=== PATIENT | female | born 1955 | race Caucasian/White ===

== ENCOUNTER → 2018-03-10 07:27 | Outpatient (CLI) | payer SELFPAY ==
--- NOTE | 2018-03-10 10:09 | NEURO_ITS ---
NCS and/or EMG Patient Report Ordering Doctor: Jaison Pina DATE OF SERVICE: 03/10/18 This is a left upper extremity nerve conduction study performed on this 62-year- old female who although she is right-handed she has symptoms on the left side including numbness of the first 3 digits and one half of the fourth digit on her left side. There is no neck pain or injury. She is healthy otherwise. Right upper extremity sensory and motor nerve conduction studies performed. The median sensory responses are not obtainable. The median motor responses are severely prolonged with severe reduction of amplitude. The ulnar motor and sensory and radial sensory responses are normal. The median F-wave latency is severely prolonged compared to the ulnar F wave latency. Impression: Abnormal nerve conduction study of the left upper extremity consistent with severe carpal tunnel syndrome at the left wrist.
== END ==
PROVIDERS: Visit Provider Orthopaedic Surgery
DX: M25.532 Pain in left wrist (principal)
CPT/HCPCS: 95909

== ENCOUNTER 2018-05-29 17:37 | Inpatient (IN) | payer OTHER, SELFPAY ==
[2018-05-29] VITALS (21 sets, daily range): BP systolic 81–129; BP diastolic 44–97; PULSE 92–136; RESP 15–22; TEMP 36.7–36.9; O2SAT 96–98; BMI 34.2
--- NOTE | 2018-05-29 18:01 | HP.PCM_ITS ---
History of Present Illness Date of Admission: 05/29/18 Chief Complaint: afib with RVR, epistaxis The patient is a 63 year old F with a past medical history of hypertension, rheumatoid arthritis and hypertrophic cardiomyopathy. She was admitted as a transfer from [facility] in hospital with A. fib and RVR as well as NSTEMI. Patient says symptoms started last Thursday when she started having left nostril nosebleed. She went to her primary care doctor's office and she was sent to the ENT and nostril was packed. Subsequently started experiencing palpitations on Thursday. Palpitations persisted with a stiff shortness of breath and lethargic. Therefore today she went to see her PCP and she was referred to the emergency room. On arrival in the emergency room. Troponin was also done which was elevated at 2.25. She was started on heparin drip and started on Cardizem drip as well. Patient requested transfer to [facility]. On arrival she had no complaints though still said she was experiencing a tachycardia. She has started experiencing left nostril bleeding again and says she felt a depend on the back of her throat. She admitted to having the left nasal packing still in place. She denied any fever or chills, any cough or chest pain but admitted to palpitations and shortness of breath with exertion, and denied any abdominal pain, diarrhea vomiting. Review of systems otherwise negative. She is being admitted to be managed for NSTEMI and Afib with RVR.[] Past Medical History Allergies No Known Allergies Allergy (Verified 06/20/16 14:49) Home Medications: Ambulatory Orders Medication Instructions Recorded ALPRAZolam [Xanax] 0.5 mg PO BID PRN PRN 02/11/16 Brimonidine Tartrate 0.2% 1 drop EACH EYE BID 02/11/16 [Brimonidine 0.2% 5Ml Bottle] Folic Acid 1 mg PO DAILY@0800 02/11/16 Hydrochlorothiazide [Hctz] 12.5 mg PO DAILY 02/11/16 Metoprolol Tartrate [Lopressor 50 mg PO DAILY 02/11/16 (beta reji)] Timolol 0.5% [Timoptic] 1 drop EACH EYE BID 02/11/16 Acetaminophen [Tylenol] 1,000 mg PO Q8 #90 tablet 12/10/16 Aspirin 325 mg PO BIDCM #60 tablet 12/10/16 Oxycodone CR [Oxycontin] 10 mg PO BID #30 tablet 12/10/16 Oxycodone [Oxyir] 5 - 10 mg PO Q6H PRN PRN #30 tablet 12/10/16 Surgical History: total knee arthroplasty 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 Denies: Chills, Fever, Weight Change Eyes: Denies: Blurred vision HEENT: Denies: Head Aches, Sinus Congestion, Sinus Drainage Cardiovascular: Reports: Light Headedness, Palpitations. Denies: Chest Pain, Chest Pressure, Chest Tightness, Edema, Heaviness, Orthopnea, Paroxysmal Noc. Dyspnea, Syncope Respiratory: Reports: Shortness of Breath, Shortness of breath upon exertion. Denies: Cough, Shortness of breath at rest, Sputum production, Wheezing Gastrointestinal: Denies: Abdominal Pain, Nausea, Vomiting Genitourinary: Denies: Dysuria Musculoskeletal: Denies: Joint Pain, Joint Tenderness Skin: Denies: Rash, Wounds Neurological: Denies: Numbness, Tingling, Focal weakness Psychiatric: Denies: Anxiety, Depression, Homicidal Ideations, Suicidal Ideations Hematologic/ Lymphatic: Denies: Easy Bruising, Easy Bleeding VTE Information - Inpt Only VTE Present on Admission: No - Physical Exam General: Alert, Oriented x3, Cooperative, No apparent distress HEENT: Atraumatic, PERRLA, EOMI, Normocephalic Oral: Moist Mucosa Neck: Supple, No JVD, Negative Carotid Bruits Lungs: Clear to auscultation, Normal air movement, No rhonchi, No wheeze, No rales Cardiovascular: Normal S1, Normal S2, Irregular Rate, Murmur - grade 3-4 systolic murmur loudest at 2nd left intercostal space and tricuspid valve area, Tachycardic Abdomen: Bowel Sounds Present, Soft, Non Tender, Non-Distended, No Hepato- splenomegaly Extremities: No clubbing, No cyanosis, No edema, Capillary Refill Less than 3 Seconds Skin: No rashes, No breakdown Musculoskeletal: No Tenderness to Palpation of Joints or Extremities Lymphatic: No Cervical, Supraclavicular, or Inguinal Adenopathy Neurological: Cranial nerves II-XII grossly intact Psych/Mental Status: Normal Affect, Appropriate, Alert and oriented to time, place, person, mood and affect Vital Signs Temp Pulse Resp BP Pulse Ox 98.4 F 127 H 17 106/82 H 98 05/29/18 17:45 05/29/18 17:45 05/29/18 17:45 05/29/18 17:45 05/29/18 17:45 Oxygen Delivery Method Room Air Weight: 187 lb Body Mass Index (BMI) 34.2 Intake and Output for Last 24 Hours 05/27/18 05/28/18 05/29/18 23:59 23:59 23:59 Intake Total 0 / 0 Balance 0 / 0 Assessment/Plan 63-year-old woman admitted with a complaint of palpitations and nosebleed. 1. New onset Afib with RVR * HR on admission in 130s-140s * on cardizem 10mcg/hr from [facility] * admit to PCU with telemetry * continue cardizem and titrate to HR <110 * on heparin drip; will continue * 2D echocardiogram * initial troponin was 2.43; will cycle * 2. NSTEMI: * initial troponin done at [place] was 2.43; will check cardiac enzymes here. * heparin drip. SL nitroglycerin PRN. * EKG showed no acute ST changes and showed Afib with RVR * cardiology consult * received statin and plavix at [place] 3. Acute diastolic CHF [id number] * BNP at [place] was 1600; has no known CHF exacerbation * last echo(2016):normal LV size with severe assymetric septal hypertrophy;' EF of 50% with mid cavitary dynamic gradient of 64mmHg. Left atrium moderately enlarged; * will repeat BNP here * give IV lasix 40mg bid * cardiology consulted * 4. Acute epistaxis: * started 3 days ago and had left nostril packed by ENT doctor in [place]. * Started bleeding again today after she was started on heparin drip; nasal packing is still in place. * Consult ENT. 5. Hypertension: * on metoprolol and HCTZ. * hadnt taken her meds for about 3 days prior to admission she states her blood pressure had been running low at home. * Currently on Cardizem drip. Systolic blood pressure running the 90s and 100s. * Will hold hydrochlorothiazide for now as well as metoprolol. * 6. Rheumatoid arthritis: on oxycodone and acetaminophen prn 7. History of hypertrophic cardiomyopathy: echo (2017) as documented above. cardiology consulted DVT prophylaxis: on heparin drip Code status; patient and counseled extensively about different types of CODE STATUS including full code, DNR CCA and DNR CCA. Patient elects to be full code. Total [id number] time 17 minutes. Code Visit Inpatient E&M: 59888 Init Hosp L3 Procedures: 12690 Advncd Care Plan 30 Min
[2018-05-29 18:53] LABS: Anion Gap 12 (5-15); BUN 33 mg/dL (7-18); BUN/Creat Ratio 43.1 RATIO (10-20); Calcium,Total 8.6 mg/dL (8.5-10.1); Chloride 104 mmol/L (98-107); Cholesterol 158 mg/dL (200); Creatinine, Serum 0.77 mg/dL (0.55-1.02); EST Glomerular Filtration Rate 81 mL/min (>60); Est Glom Filt Rate - Afr Amer 98 mL/min (>60); Estimated Creatinine Clearance 59.15 ml/min; Glucose 122 mg/dL (74-106); High Density Lipoprotein 32 mg/dL; Potassium 3.8 mmol/L (3.5-5.1); Sodium Level 139 mmol/L (136-145); Triglycerides 115 mg/dL; Very Low Density Lipoprotein 23 mg/dL (5-40)
[2018-05-29 19:25] LABS: Absolute Lymphocyte Count 2.83 X10^3/ul (0.83-4.51); Absolute Neutrophil Count 9.6 X10^3/uL (2.0-7.7); Basophil# 0.04 X10^3/uL; Basophil% 0.3 % (0-1); Differential Indicated SCAN CRITERIA MET; Eosinophil# 0.03 X10^3/uL; Eosinophils% 0.2 % (0-5); Hemoglobin 12.1 g/dl (12.0-15.0); Lymphocyte # 2.83 X10^3/ul (4.0); Lymphocyte % 20.2 % (19-41); Mean Corp Hgb Conc 33.6 g/gl (32-36); Mean Corpuscular Hgb 31.6 pg (27.0-32.0); Mean Platelet Vol. 9.3 fl (6.2-12.0); Monocyte# 1.51 X10^3/uL; Monocyte% 10.8 % (0-10); Neutrophil # 9.57 X10^3/uL (2.7-7.7); Neutrophil % 68.4 % (47-70); POSITIVE COUNT NO; POSITIVE DIFFERENTIAL YES; POSITIVE MORPHOLOGY NO; Platelet Count 270 K/mm3 (150-450); RBC Distribution Width CV 13.8 % (11.6-14.6); RBC Distribution Width SD 47.1 fl (35.1-43.9); Red Blood Count 3.83 M/mm3 (4.2-5.4)
[2018-05-29 19:36] LABS: International Normalized Ratio 1.3
[2018-05-29] MEDS: Clopidogrel Bisulfate 300 MG Tablet PO (19:38)
[2018-05-29] MEDS: dilTIAZem 25 MG/5 ML Vial 20 MG IV BOLUS (19:39)
[2018-05-29] MEDS: 0.9% Saline Lock 10 ML Syringe IV (19:40)
[2018-05-29 20:05] LABS: Partial Thromboplast Time 184.4 Seconds (24.1-36.2)
[2018-05-29 20:06] LABS: Differential Comment SCANNED
[2018-05-29] MEDS: Digoxin 250 MCG/ML Ampul 500 MCG IV (20:46)
--- NOTE | 2018-05-29 21:10 | PCM.CONS.C ---
Reason for Consult Date of Consultation: 05/29/18 Reason for Consultation: Irregular heartbeat History of Present Illness: The patient is a 63 year old F with a past medical history of hypertension, rheumatoid arthritis and hypertrophic cardiomyopathy. She was admitted as a transfer from [facility] with A. fib and RVR as well as NSTEMI. Patient says symptoms started last Thursday when she started having left nostril nosebleed. She went to her primary care doctor's office and she was sent to the ENT and nostril was packed. Subsequently started experiencing palpitations on Thursday. Palpitations persisted with some associated shortness of breath. Therefore today she went to see her PCP and she was referred to the emergency room. On arrival in the emergency room. Troponin was also done which was elevated at 2.25. She was started on heparin drip and started on Cardizem drip as well. Patient requested transfer to [facility]. On arrival she had no complaints though still said she was experiencing a tachycardia. She has started experiencing left nostril bleeding again and says she felt a depend on the back of her throat. She admitted to having the left nasal packing still in place. She denied any fever or chills, any cough or chest pain but admitted to palpitations and shortness of breath with exertion, and denied any abdominal pain, diarrhea vomiting. On the telemetry unit she was noted to be tachycardic and also got mildly hypotensive and cardiology was called for further evaluation and management. You do remember that she had gone through previous 2 knee surgeries. She had a stress test performed last year which did not demonstrate any evidence of ischemia and an echocardiogram performed which demonstrated severe asymmetric septal hypertrophy with an estimated ejection fraction of 50% on the echocardiogram performed here in [place]. There was systolic anterior motion of the mitral valve noted. Echocardiogram performed in [place] demonstrated a similar finding. Previous cardiac catheterization in 2004 demonstrated no obstructive coronary disease noted. 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 Denies: Chest Discomfort, Shortness of Breath, Orthopnea, PND, Peripheral Edema, Lightheadedness, Dizziness, Near Syncope, Syncope Respiratory: Denies: Cough, Sputum Production, Hemoptysis Gastrointestinal: Denies: Indigestion, Hematemesis, Hematochezia, Melena Genitourinary: Denies: Dysuria, Hematuria Muscoloskeletal: Denies: Myalgias Skin: Denies: Rash Neurological: Denies: Dizziness Psychiatric: Denies: Anxiety Endocrine: Denies: Unexplained Weight Loss Hematologic/ Lymphatic: Denies: Anemia Subjectve: Pleasant lady in no apparent distress Objective: Vital Signs Temp Pulse Resp BP Pulse Ox 98.4 F 115 H 21 H 92/65 97 05/29/18 17:45 05/29/18 20:46 05/29/18 19:15 05/29/18 19:15 05/29/18 19:15 Oxygen Delivery Method Room Air Weight: 187 lb Body Mass Index (BMI) 34.2 Intake and Output for Last 24 Hours 05/27/18 05/28/18 05/29/18 23:59 23:59 23:59 Intake Total 0 / 0 Balance 0 / 0 General: Awake, Alert, Oriented x 3 HEENT: PERRL, EOMI, Sclera Non Icteric Neck: Supple, Good ROM, No Lymph Node Enlargement Lungs: Diminished Johnny Bases Cardiovascular: Irregular Rhythm, Normal S1, Normal S2, No Rubs, No Gallops Vascular: No Carotid Bruits, Normal Femoral Pulses, Normal Radial Pulses, Normal Dorsalis Pedal Pulse, Normal Posterior Tibial Pulses Abdomen: Bowel Sounds Present, Soft, Non Tender, No HSM, No Organomegaly Extremities: No Cyanosis, No Clubbing, No edema Skin: No Rashes Lymphatic: No Lymph Node Enlargement Neurological: No Focal Motor or Sensory Deficit Psych/Mental Status: Appropriate 05/29/18 18:22: Troponin I 5.450 H* 05/29/18 18:22: Sodium 139, Potassium 3.8, Chloride 104, Carbon Dioxide 23.0, Anion Gap 12, BUN 33 H, Creatinine 0.77, Est GFR (MDRD) Af Amer 98, Est GFR (MDRD) Non-Af 81, BUN/Creatinine Ratio 43.1 H, Glucose 122 H, Calcium 8.6, Triglycerides 115, Cholesterol 158, LDL Cholesterol 103, VLDL Cholesterol 23, HDL Cholesterol 32 L 05/29/18 19:09: WBC 14.0 H, RBC 3.83 L, Hgb 12.1, Hct 36.0 L, MCV 94.0, MCH 31.6, MCHC 33.6, RDW 13.8, RDW Differential 47.1 H, Plt Count 270, MPV 9.3, Immature Gran % (Auto) 0.100, Neut % (Auto) 68.4, Lymph % (Auto) 20.2, [place] % (Auto) 10.8 H, Eos % (Auto) 0.2, Baso % (Auto) 0.3, Absolute Neuts (auto) 9.6 H, Total Counted Not Reportable 05/29/18 19:09: PT 16.0 H, INR 1.3, APTT 184.4 H* Rhythm: EKG: Electrocardiogram demonstrated atrial fibrillation with a rapid ventricular response rate and ST depression noted in V4 through V6 Assessment/Plan 1. Atrial fibrillation with rapid ventricular response rate Patient presents with atrial fibrillation with rapid ventricular response rate which appears to be somewhat symptomatic Recommendation would be to continue the beta-reji for now and also use intravenous Cardizem for rate control Echocardiogram should be performed to assess her left ventricular function. Ideally she should be on anticoagulation but with her recent nosebleed I would like to wait until the above is stable. 2. Asymmetric hypertrophic cardiomyopathy Patient has been previously diagnosed with this and we will need to make sure she is on adequate negatively chronotropic agents with enough beta-reji. Potentially needs to be avoided and thus her ventricular response rate needs to be controlled She may ultimately need an antiarrhythmic to prevent further atrial fibrillation episodes. An agent such as Norpace may be helpful 3. Hypertension Blood pressure appears to be under good control at this time. 4. Abnormal cardiac enzymes Suspect the above is not likely secondary to plaque rupture but may be due to the atrial fibrillation with a rapid ventricular response rate especially with her asymmetrical septal hypertrophy. Type II myocardial infarction cannot be completely excluded She may ultimately need a left heart catheterization to further define her anatomy. Thank you for allowing me to participate in the care of your patient. Please don't hesitate to call if any issues arise
--- NOTE | 2018-05-29 21:15 | CON.PCM_ITS ---
Reason for Consult Date of Consultation: 05/29/18 Reason for Consultation: Irregular heartbeat History of Present Illness: The patient is a 63 year old F with a past medical history of hypertension, rheumatoid arthritis and hypertrophic cardiomyopathy. She was admitted as a transfer from [facility] with A. fib and RVR as well as NSTEMI. Patient says symptoms started last Thursday when she started having left nostril nosebleed. She went to her primary care doctor's office and she was sent to the ENT and nostril was packed. Subsequently started experiencing palpitations on Thursday. Palpitations persisted with some associated shortness of breath. Therefore today she went to see her PCP and she was referred to the emergency room. On arrival in the emergency room. Troponin was also done which was elevated at 2.25. She was started on heparin drip and started on Cardizem drip as well. Patient requested transfer to [facility]. On arrival she had no complaints though still said she was experiencing a tachycardia. She has started experiencing left nostril bleeding again and says she felt a depend on the back of her throat. She admitted to having the left nasal packing still in place. She denied any fever or chills, any cough or chest pain but admitted to palpitations and shortness of breath with exertion, and denied any abdominal pain, diarrhea vomiting. On the telemetry unit she was noted to be tachycardic and also got mildly hypotensive and cardiology was called for further evaluation and management. You do remember that she had gone through previous 2 knee surgeries. She had a stress test performed last year which did not demonstrate any evidence of ischemia and an echocardiogram performed which demonstrated severe asymmetric septal hypertrophy with an estimated ejection fraction of 50% on the echocardiogram performed here in [place]. There was systolic anterior motion of the mitral valve noted. Echocardiogram performed in [place] demonstrated a similar finding. Previous cardiac catheterization in 2004 demonstrated no obstructive coronary disease noted. 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 Denies: Chest Discomfort, Shortness of Breath, Orthopnea, PND, Peripheral Edema, Lightheadedness, Dizziness, Near Syncope, Syncope Respiratory: Denies: Cough, Sputum Production, Hemoptysis Gastrointestinal: Denies: Indigestion, Hematemesis, Hematochezia, Melena Genitourinary: Denies: Dysuria, Hematuria Muscoloskeletal: Denies: Myalgias Skin: Denies: Rash Neurological: Denies: Dizziness Psychiatric: Denies: Anxiety Endocrine: Denies: Unexplained Weight Loss Hematologic/ Lymphatic: Denies: Anemia Subjectve: Pleasant lady in no apparent distress Objective: Vital Signs Temp Pulse Resp BP Pulse Ox 98.4 F 115 H 21 H 92/65 97 05/29/18 17:45 05/29/18 20:46 05/29/18 19:15 05/29/18 19:15 05/29/18 19:15 Oxygen Delivery Method Room Air Weight: 187 lb Body Mass Index (BMI) 34.2 Intake and Output for Last 24 Hours 05/27/18 05/28/18 05/29/18 23:59 23:59 23:59 Intake Total 0 / 0 Balance 0 / 0 General: Awake, Alert, Oriented x 3 HEENT: PERRL, EOMI, Sclera Non Icteric Neck: Supple, Good ROM, No Lymph Node Enlargement Lungs: Diminished Johnny Bases Cardiovascular: Irregular Rhythm, Normal S1, Normal S2, No Rubs, No Gallops Vascular: No Carotid Bruits, Normal Femoral Pulses, Normal Radial Pulses, Normal Dorsalis Pedal Pulse, Normal Posterior Tibial Pulses Abdomen: Bowel Sounds Present, Soft, Non Tender, No HSM, No Organomegaly Extremities: No Cyanosis, No Clubbing, No edema Skin: No Rashes Lymphatic: No Lymph Node Enlargement Neurological: No Focal Motor or Sensory Deficit Psych/Mental Status: Appropriate 05/29/18 18:22: Troponin I 5.450 H* 05/29/18 18:22: Sodium 139, Potassium 3.8, Chloride 104, Carbon Dioxide 23.0, Anion Gap 12, BUN 33 H, Creatinine 0.77, Est GFR (MDRD) Af Amer 98, Est GFR (MDRD) Non-Af 81, BUN/Creatinine Ratio 43.1 H, Glucose 122 H, Calcium 8.6, Triglycerides 115, Cholesterol 158, LDL Cholesterol 103, VLDL Cholesterol 23, HDL Cholesterol 32 L 05/29/18 19:09: WBC 14.0 H, RBC 3.83 L, Hgb 12.1, Hct 36.0 L, MCV 94.0, MCH 31.6, MCHC 33.6, RDW 13.8, RDW Differential 47.1 H, Plt Count 270, MPV 9.3, Immature Gran % (Auto) 0.100, Neut % (Auto) 68.4, Lymph % (Auto) 20.2, [place] % (Auto) 10.8 H, Eos % (Auto) 0.2, Baso % (Auto) 0.3, Absolute Neuts (auto) 9.6 H, Total Counted Not Reportable 05/29/18 19:09: PT 16.0 H, INR 1.3, APTT 184.4 H* Rhythm: EKG: Electrocardiogram demonstrated atrial fibrillation with a rapid ventricular response rate and ST depression noted in V4 through V6 Assessment/Plan 1. Atrial fibrillation with rapid ventricular response rate * Patient presents with atrial fibrillation with rapid ventricular response rate which appears to be somewhat symptomatic * Recommendation would be to continue the beta-reji for now and also use intravenous Cardizem for rate control * Echocardiogram should be performed to assess her left ventricular function. * Ideally she should be on anticoagulation but with her recent nosebleed I would like to wait until the above is stable. * 2. Asymmetric hypertrophic cardiomyopathy * Patient has been previously diagnosed with this and we will need to make sure she is on adequate negatively chronotropic agents with enough beta-reji. * Potentially needs to be avoided and thus her ventricular response rate needs to be controlled * She may ultimately need an antiarrhythmic to prevent further atrial fibrillation episodes. An agent such as Norpace may be helpful * 3. Hypertension * Blood pressure appears to be under good control at this time. * 4. Abnormal cardiac enzymes * Suspect the above is not likely secondary to plaque rupture but may be due to the atrial fibrillation with a rapid ventricular response rate especially with her asymmetrical septal hypertrophy. * Type II myocardial infarction cannot be completely excluded * She may ultimately need a left heart catheterization to further define her anatomy. * * Thank you for allowing me to participate in the care of your patient. Please don't hesitate to call if any issues arise
[2018-05-29] MEDS: BRIMONIDINE 0.2% 5ML BOTTLE 1 DRP EACH EYE (22:00)
[2018-05-29] MEDS: Latanoprost 0.005% 1 Bottle 1 DRP EACH EYE (22:00)
[2018-05-29] MEDS: Metoprolol(XL)Succ 50 MG Tablet PO (22:01)
[2018-05-29] MEDS: Timolol 0.5% 5ML OPTH.BTL 1 DRP EACH EYE (22:01)
--- NOTE | 2018-05-29 22:03 | NURSING ---
Pts primary rn aware of troponin result of 5.130 at this time.
[2018-05-29 23:57] LABS: BNP,B-Type NATRIURETIC PEPTIDE 940.8 pg/mL (0-100)
[2018-05-30] VITALS (19 sets, daily range): BP systolic 87–112; BP diastolic 50–75; PULSE 70–95; RESP 16–25; TEMP 36.4–36.9; O2SAT 94–100
--- NOTE | 2018-05-30 07:00 | EKG12_ITS ---
Test Reason : AM EKG Blood Pressure : / mmHG Vent. Rate : 085 BPM Atrial Rate : 084 BPM P-R Int : 000 ms QRS Dur : 094 ms QT Int : 392 ms P-R-T Axes : 000 031 251 degrees QTc Int : 466 ms Atrial fibrillation Minimal voltage criteria for LVH, may be normal variant Marked ST abnormality, possible inferior subendocardial injury Marked ST abnormality, possible anterolateral subendocardial injury Abnormal ECG When compared with ECG of 08-DEC-2016 09:43, Significant changes have occurred Confirmed by AMILCAR FLANAGAN, KAUSHIK ([id number]), technical editor FOREST HANNON ([id number] on 06/01/2018 9:05:08 AM Referred By: JONATHAN Confirmed By:KAUSHIK FITZGERALD MD
--- NOTE | 2018-05-30 08:00 | ECHOD_ITS ---
Reason For Study: Afib/Flutter Procedure This was a 2D Doppler, Color Flow transthoracic echocardiogram. Exam performed portable in patient room. Left Ventricle Severe assymetric septal hypertrophy. Normal LV size. The estimated ejection fraction is 70 %. No regional wall motion abnormalities noted. Right Ventricle Normal RV size. Normal systolic function. Atria The left atrium is moderately enlarged. The right atrium is mildly enlarged. Mitral Valve Mild focal mitral valve calcification of the anterior leaflet. Moderate (2+) eccentric mitral valve insufficiency. Tricuspid Valve Normal tricuspid valve. Moderately severe (3+) tricuspid valve insufficiency. Pulmonary artery systolic pressure is 76 mmHg. Severe pulmonary hypertension. Aortic Valve Trisinus/trileaflet aortic valve. Mild (1+) eccentric aortic valve insufficiency. Pulmonic Valve The pulmonic valve is not well visualized. Great Vessels Normal aortic root. The pulmonary artery is normal size. Normal inferior vena cava. Pericardium/Pleural No pericardial effusion. MMode/2D Measurements & Calculations LVIDd: 3.8 cm IVSd: 2.3 cm Ao root diam: 3.2 cm LVIDs: 2.4 cm LVPWd: 1.5 cm LA dimension: 4.2 cm RVDd: 2.8 cm FS: 37.2 % LAV(MOD-sp4): 118.1 ml LA A4 area: 29.9 cm2 RA A4 area: 23.6 cm2 Time Measurements MV dec time: 0.19 sec Doppler Measurements & Calculations MV E max ajay: 130.3 cm/sec MV V2 max: 154.1 cm/sec Ao V2 max: 202.5 cm/sec MV A max ajay: 29.5 cm/sec MV max P.5 mmHg Ao max P.5 mmHg MV E/A: 4.4 MV V2 mean: 76.8 cm/sec MV mean P.0 mmHg MV V2 VTI: 29.6 cm AI max ajay: 435.7 cm/sec LV V1 max: 156.9 cm/sec MR max ajay: 541.6 cm/sec AI max P.0 mmHg LV V1 max P.8 mmHg MR max P.3 mmHg AI dec slope: 222.2 cm/sec2 MR mean ajay: 382.8 cm/sec AI P1/2t: 574.4 msec MR mean P.2 mmHg MR VTI: 138.2 cm PA V2 max: 112.7 cm/sec TR max ajay: 418.3 cm/sec TR max P.0 mmHg Interpretation Summary Severe assymetric septal hypertrophy. Normal LV size. The estimated ejection fraction is 70 %. The left atrium is moderately enlarged. Moderately severe (3+) tricuspid valve insufficiency. Pulmonary artery systolic pressure is 76 mmHg. Severe pulmonary hypertension. Ordering Physician: Amaris Rosenbaum Referring Physician: Shannan Arguello Performed By: Maximilian Rothman RCS
[2018-05-30] MEDS: Metoprolol(XL)Succ 50 MG Tablet PO ×2 (09:00→22:03)
[2018-05-30] MEDS: Timolol 0.5% 5ML OPTH.BTL 1 DRP EACH EYE ×2 (09:00→22:03)
[2018-05-30] MEDS: BRIMONIDINE 0.2% 5ML BOTTLE 1 DRP EACH EYE ×2 (09:00→22:02)
--- NOTE | 2018-05-30 10:19 | PCM.PN.CARD ---
Subjectve: Patient seen and evaluated. Appears to be doing much better this morning. No palpitations and no significant nasal bleeding Objective: Vital Signs Temp Pulse Resp BP Pulse Ox 98.5 F 87 22 H 101/66 96 05/30/18 04:00 05/30/18 07:00 05/30/18 07:00 05/30/18 07:00 05/30/18 09:00 Oxygen Delivery Method Room Air Weight: 187 lb Body Mass Index (BMI) 34.2 Intake and Output for Last 24 Hours 05/28/18 05/29/18 05/30/18 23:59 23:59 23:59 Intake Total 0 / 0 742 / 742 Balance 0 / 0 742 / 742 General: Awake, Alert, Oriented x 3 HEENT: PERRL, EOMI, Sclera Non Icteric Neck: Supple, Good ROM, No Lymph Node Enlargement Lungs: Clear to auscultation Cardiovascular: Irregular Rhythm, Normal S1, Normal S2, No Murmurs, No Rubs, No Gallops Vascular: No Carotid Bruits, Normal Femoral Pulses, Normal Radial Pulses, Normal Dorsalis Pedal Pulse, Normal Posterior Tibial Pulses Abdomen: Bowel Sounds Present, Soft, Non Tender, No HSM, No Organomegaly Extremities: No Cyanosis, No Clubbing, No edema Skin: No Rashes Lymphatic: No Lymph Node Enlargement Neurological: No Focal Motor or Sensory Deficit 05/29/18 18:22: Troponin I 5.450 H* 05/29/18 18:22: Sodium 139, Potassium 3.8, Chloride 104, Carbon Dioxide 23.0, Anion Gap 12, BUN 33 H, Creatinine 0.77, Est GFR (MDRD) Af Amer 98, Est GFR (MDRD) Non-Af 81, BUN/Creatinine Ratio 43.1 H, Glucose 122 H, Calcium 8.6, Triglycerides 115, Cholesterol 158, LDL Cholesterol 103, VLDL Cholesterol 23, HDL Cholesterol 32 L 05/29/18 19:09: WBC 14.0 H, RBC 3.83 L, Hgb 12.1, Hct 36.0 L, MCV 94.0, MCH 31.6, MCHC 33.6, RDW 13.8, RDW Differential 47.1 H, Plt Count 270, MPV 9.3, Immature Gran % (Auto) 0.100, Neut % (Auto) 68.4, Lymph % (Auto) 20.2, [place] % (Auto) 10.8 H, Eos % (Auto) 0.2, Baso % (Auto) 0.3, Absolute Neuts (auto) 9.6 H, Total Counted Not Reportable 05/29/18 19:09: PT 16.0 H, INR 1.3, APTT 184.4 H* 05/29/18 19:09: B-Natriuretic Peptide 940.8 H 05/29/18 21:22: Troponin I 5.130 H* 05/30/18 00:25: Troponin I 5.380 H* Rhythm: EKG: Atrial fibrillation with a controlled ventricular response rate. Downsloping ST depression noted in V4 V5 V6 Medical Necessity - Tobacco Use Smoking Status: Never smoker Assessment/Plan 1. Atrial fibrillation with rapid ventricular response rate Patient presents with atrial fibrillation with rapid ventricular response rate which appears to be somewhat symptomatic Recommendation would be to continue the beta-reji for now Echocardiogram should be performed to assess her left ventricular function. Ideally she should be on anticoagulation but with her recent nosebleed I would like to wait until the above is stable. Will discontinue IV Cardizem for now 2. Asymmetric hypertrophic cardiomyopathy Patient has been previously diagnosed with this and we will need to make sure she is on adequate negatively chronotropic agents with enough beta-reji. Potentially needs to be avoided and thus her ventricular response rate needs to be controlled She may ultimately need an antiarrhythmic to prevent further atrial fibrillation episodes. An agent such as Norpace may be helpful 3. Hypertension Blood pressure appears to be under good control at this time. 4. Abnormal cardiac enzymes Suspect the above is not likely secondary to plaque rupture but may be due to the atrial fibrillation with a rapid ventricular response rate especially with her asymmetrical septal hypertrophy. Type II myocardial infarction cannot be completely excluded She may ultimately need a left heart catheterization to further define her anatomy. 5. Epistaxis Will likely need to be evaluated by ENT Thank you for allowing me to participate in the care of your patient. Please don't hesitate to call if any issues arise
--- NOTE | 2018-05-30 10:23 | PN.CARD_ITS ---
Subjectve: Patient seen and evaluated. Appears to be doing much better this morning. No palpitations and no significant nasal bleeding Objective: Vital Signs Temp Pulse Resp BP Pulse Ox 98.5 F 87 22 H 101/66 96 05/30/18 04:00 05/30/18 07:00 05/30/18 07:00 05/30/18 07:00 05/30/18 09:00 Oxygen Delivery Method Room Air Weight: 187 lb Body Mass Index (BMI) 34.2 Intake and Output for Last 24 Hours 05/28/18 05/29/18 05/30/18 23:59 23:59 23:59 Intake Total 0 / 0 742 / 742 Balance 0 / 0 742 / 742 General: Awake, Alert, Oriented x 3 HEENT: PERRL, EOMI, Sclera Non Icteric Neck: Supple, Good ROM, No Lymph Node Enlargement Lungs: Clear to auscultation Cardiovascular: Irregular Rhythm, Normal S1, Normal S2, No Murmurs, No Rubs, No Gallops Vascular: No Carotid Bruits, Normal Femoral Pulses, Normal Radial Pulses, Normal Dorsalis Pedal Pulse, Normal Posterior Tibial Pulses Abdomen: Bowel Sounds Present, Soft, Non Tender, No HSM, No Organomegaly Extremities: No Cyanosis, No Clubbing, No edema Skin: No Rashes Lymphatic: No Lymph Node Enlargement Neurological: No Focal Motor or Sensory Deficit 05/29/18 18:22: Troponin I 5.450 H* 05/29/18 18:22: Sodium 139, Potassium 3.8, Chloride 104, Carbon Dioxide 23.0, Anion Gap 12, BUN 33 H, Creatinine 0.77, Est GFR (MDRD) Af Amer 98, Est GFR (MDRD) Non-Af 81, BUN/Creatinine Ratio 43.1 H, Glucose 122 H, Calcium 8.6, Triglycerides 115, Cholesterol 158, LDL Cholesterol 103, VLDL Cholesterol 23, HDL Cholesterol 32 L 05/29/18 19:09: WBC 14.0 H, RBC 3.83 L, Hgb 12.1, Hct 36.0 L, MCV 94.0, MCH 31.6, MCHC 33.6, RDW 13.8, RDW Differential 47.1 H, Plt Count 270, MPV 9.3, Immature Gran % (Auto) 0.100, Neut % (Auto) 68.4, Lymph % (Auto) 20.2, [place] % (Auto) 10.8 H, Eos % (Auto) 0.2, Baso % (Auto) 0.3, Absolute Neuts (auto) 9.6 H, Total Counted Not Reportable 05/29/18 19:09: PT 16.0 H, INR 1.3, APTT 184.4 H* 05/29/18 19:09: B-Natriuretic Peptide 940.8 H 05/29/18 21:22: Troponin I 5.130 H* 05/30/18 00:25: Troponin I 5.380 H* Rhythm: EKG: Atrial fibrillation with a controlled ventricular response rate. Downsloping ST depression noted in V4 V5 V6 Medical Necessity - Tobacco Use Smoking Status: Never smoker Assessment/Plan 1. Atrial fibrillation with rapid ventricular response rate * Patient presents with atrial fibrillation with rapid ventricular response rate which appears to be somewhat symptomatic * Recommendation would be to continue the beta-reji for now * Echocardiogram should be performed to assess her left ventricular function. * Ideally she should be on anticoagulation but with her recent nosebleed I would like to wait until the above is stable. * Will discontinue IV Cardizem for now 2. Asymmetric hypertrophic cardiomyopathy * Patient has been previously diagnosed with this and we will need to make sure she is on adequate negatively chronotropic agents with enough beta-reji. * Potentially needs to be avoided and thus her ventricular response rate needs to be controlled * She may ultimately need an antiarrhythmic to prevent further atrial fibrillati on episodes. An agent such as Norpace may be helpful * 3. Hypertension * Blood pressure appears to be under good control at this time. * 4. Abnormal cardiac enzymes * Suspect the above is not likely secondary to plaque rupture but may be due to the atrial fibrillation with a rapid ventricular response rate especially with her asymmetrical septal hypertrophy. * Type II myocardial infarction cannot be completely excluded * She may ultimately need a left heart catheterization to further define her anatomy. * 5. Epistaxis * Will likely need to be evaluated by ENT * Thank you for allowing me to participate in the care of your patient. Please don't hesitate to call if any issues arise
--- NOTE | 2018-05-30 11:25 | PCM.CONS.B ---
- Consult Date of Consult: 05/30/18 - Reason for Consult ENT consultation 05/30/2018 Patient is a 63-year-old white female admitted in transfer from [facility] for evaluation and management of cardiac arrhythmia. She had had nasal bleeding prior to the development of cardiac symptoms and the need for intervention. She had been seen by primary care, urgent care, and then Dr. Rios the ENT doctor in [place]. Initially a balloon pack was placed but subsequently removed and Dr Rios placed a Gelfoam type of pack into the left nasal chamber and this seemed to be adequate. She was told to follow-up with Dr. Rios in 4 days. In that interim she developed shortness of breath, palpitations, and was noted to have atrial fibrillation. She was transferred to [facility] for definitive evaluation and management. ENT was consulted to give recommendation regarding the nasal packing. No additional bleeding has occurred. At the current time the epistaxis seems controlled. She does notice sinonasal drainage and this may be in part precipitated by the presence of a foreign body in the left nasal chamber. She gave history of having intermittent episodes of minor epistaxis every winter. Using moisturization was usually helpful. Examination revealed middle-aged white female. She was having no obvious bleeding. Right nasal chamber was clear. Left nasal chamber contained a pack that seemed consistent with Gelfoam or MeroGel material. No obvious bleeding noted. The oral cavity and oropharynx were clear. Impression: epistaxis currently controlled with packing. The underlying issue of atrial fibrillation and need for anticoagulation compounds the situation amd limits some options for management. Plan: Even if this were a fiber type pack such as Vaseline gauze, the pack should remain 3-5 days to allow for conservative management of any bleeding. In the presence of anti-platelet medications, cautery is relatively contraindicated. Antibiotics (such as Augmentin) should be instituted to cover for sinusitis or any difficulty with bacterial colonization of the packing material. Bedside humidifier should be added as well. Will follow. Juan C Dover MD
[2018-05-30] MEDS: Loratadine 10 MG Tablet 5 MG PO (12:15)
[2018-05-30] MEDS: Amox/Clavulanate 875 MG Tablet PO ×2 (12:16→22:03)
--- NOTE | 2018-05-30 13:20 | PCM.PROGNOTE ---
Subjective: Patient seen and examined. Resting on side of bed. Denies current complaints. Denies chest pain, shortness of breath, palpitations. - Physical Exam General: Alert, Oriented x3, Cooperative, No apparent distress HEENT: Atraumatic, PERRLA, EOMI, Normocephalic Neck: Supple, No JVD, Negative Carotid Bruits Lungs: Clear to auscultation, Normal air movement Cardiovascular: Murmur, - - Atrial relation, rate controlled Abdomen: Bowel Sounds Present, Soft, Non Tender, Non-Distended, Obese Extremities: No clubbing, No cyanosis, No edema, Capillary Refill Less than 3 Seconds Skin: No rashes, No breakdown Musculoskeletal: No Tenderness to Palpation of Joints or Extremities Neurological: Cranial nerves II-XII grossly intact, Neuro grossly intact Psych/Mental Status: Normal Affect, Appropriate Vital Signs Temp Pulse Resp BP Pulse Ox 98.3 F 77 22 H 104/75 100 05/30/18 12:00 05/30/18 12:00 05/30/18 12:00 05/30/18 12:00 05/30/18 12:00 Oxygen Delivery Method Room Air Weight: 187 lb Body Mass Index (BMI) 34.2 Intake and Output for Last 24 Hours 05/28/18 05/29/18 05/30/18 23:59 23:59 23:59 Intake Total 0 / 0 1417 / 1417 Balance 0 / 0 1417 / 1417 Laboratory Tests Past 24 Hrs 05/29/18 05/29/18 05/29/18 18:22 18:22 19:09 WBC 14.0 H RBC 3.83 L Hgb 12.1 Hct 36.0 L MCV 94.0 MCH 31.6 MCHC 33.6 RDW 13.8 RDW Differential 47.1 H Plt Count 270 MPV 9.3 Immature Gran % (Auto) 0.100 Neut % (Auto) 68.4 Lymph % (Auto) 20.2 [place] % (Auto) 10.8 H Eos % (Auto) 0.2 Baso % (Auto) 0.3 Absolute Neuts (auto) 9.6 H Absolute Lymphs (auto) 2.83 Total Counted Not Reportable Differential Comment SCANNED PT INR APTT Sodium 139 Potassium 3.8 Chloride 104 Carbon Dioxide 23.0 Anion Gap 12 BUN 33 H Creatinine 0.77 Estim Creat Clear Calc 59.15 Est GFR (MDRD) Af Amer 98 Est GFR (MDRD) Non-Af 81 BUN/Creatinine Ratio 43.1 H Glucose 122 H Calcium 8.6 Troponin I 5.450 H* B-Natriuretic Peptide Triglycerides 115 Cholesterol 158 LDL Cholesterol 103 VLDL Cholesterol 23 HDL Cholesterol 32 L 05/29/18 05/29/18 05/29/18 19:09 19:09 21:22 WBC RBC Hgb Hct MCV MCH MCHC RDW RDW Differential Plt Count MPV Immature Gran % (Auto) Neut % (Auto) Lymph % (Auto) [place] % (Auto) Eos % (Auto) Baso % (Auto) Absolute Neuts (auto) Absolute Lymphs (auto) Total Counted Differential Comment PT 16.0 H INR 1.3 APTT 184.4 H* Sodium Potassium Chloride Carbon Dioxide Anion Gap BUN Creatinine Estim Creat Clear Calc Est GFR (MDRD) Af Amer Est GFR (MDRD) Non-Af BUN/Creatinine Ratio Glucose Calcium Troponin I 5.130 H* B-Natriuretic Peptide 940.8 H Triglycerides Cholesterol LDL Cholesterol VLDL Cholesterol HDL Cholesterol 05/30/18 00:25 WBC RBC Hgb Hct MCV MCH MCHC RDW RDW Differential Plt Count MPV Immature Gran % (Auto) Neut % (Auto) Lymph % (Auto) [place] % (Auto) Eos % (Auto) Baso % (Auto) Absolute Neuts (auto) Absolute Lymphs (auto) Total Counted Differential Comment PT INR APTT Sodium Potassium Chloride Carbon Dioxide Anion Gap BUN Creatinine Estim Creat Clear Calc Est GFR (MDRD) Af Amer Est GFR (MDRD) Non-Af BUN/Creatinine Ratio Glucose Calcium Troponin I 5.380 H* B-Natriuretic Peptide Triglycerides Cholesterol LDL Cholesterol VLDL Cholesterol HDL Cholesterol Medical Necessity - Tobacco Use Smoking Status: Never smoker Assessment/Plan 1. New onset atrial fibrillation with RVR-cardiology following. Continue home beta-reji regimen. On IV Cardizem drip. Check TSH, mag. Anticoagulation on hold given current acute epistaxis. When this is resolved, recommend addition of anticoagulation. Echocardiogram pending. 2. NSTEMI-suspect demand ischemia secondary to #1. Cardiology following. Plans to undergo left heart cath to rule out underlying CAD. 3. Acute diastolic CHF-BNP 940 on admission. No prior history of CHF. Echo from 2017 showed an EF of 50%, mid cavitary dynamic gradient of 64 mmHg. Left atrium moderately enlarged. Repeat echocardiogram pending. Patient received IV Lasix on admission which has since been discontinued. 4. Acute epistaxis-ENT following. Packing in place left nasal chamber. Started on Augmentin 875 mg p.o. twice daily. Leave packing in place 3-5 days. Outpatient follow-up upon discharge with ENT. 5. Hypertension-stable, continue current regimen. 6. History of asymmetric hypertrophic cardiomyopathy 7. Rheumatoid arthritis-not on regimen. DVT prophylaxis-SCDs. Pharmacologic prophylaxis on hold given acute epistaxis. This patient was seen by MATT Bowen under the supervision of Dr. Ledesma.
[2018-05-30 14:05] LABS: Thyroid Stim Hormone (TSH) 4.25 uIU/mL (0.358-3.74)
--- NOTE | 2018-05-30 15:10 | RAD_ITS ---
STUDY: X-RAY CHEST REASON FOR EXAM: Female, 63 years old. Heart catheterization this morning, history of hypertension and arrhythmia TECHNIQUE: AP COMPARISON: None. FINDINGS: The lungs are clear and expanded. There is no demonstrated pleural abnormality. There is mild cardiac enlargement. Normal mediastinum and alda. Normal visualized pulmonary arteries. There is atherosclerotic tortuosity of the aortic arch and descending thoracic aorta. There are diffuse degenerative changes of the visualized thoracic spine. Normal visualized ribs, clavicles, and shoulders. There is no demonstrated abnormality of the visualized soft tissue structures of the upper abdomen. RAD/Chest 1 View (Portable) IMPRESSION: 1. No acute cardiopulmonary process. 2. Mild cardiomegaly. Electronically Signed: Trell Ibarra MD at 16:22 EST , Service support ,
[2018-05-30 15:53] LABS: Bacteria 0 SEEN /hpf (None Seen); Mucous, Urine 0 SEEN /hpf (<or=2+); Red Blood Cells-Urine 0 SEEN /hpf (0-5)
[2018-05-30 15:58] LABS: Color, Urine Yellow (Yellow); Glucose, Dipstick Normal (Normal); Ketone-Dipstick Negative (Negative); Leukocyte Esterase-Dipstick 500 /ul (Negative); Nitrite-Dipstick Negative (Negative); Occult Blood-Urine 50 /ul (Negative); Protein-Dipstick Negative (Negative); Specific Gravity, Urine 1.015 (1.002-1.030); Urine Bilirubin Dipstick Negative (Negative); Urine Clarity Clear (Clear); Urine Urobilinogen 4 mg/dl (Normal)
[2018-05-30 16:06] LABS: White Blood Cells 5-10 SEEN /hpf (0-5)
[2018-05-30 16:07] LABS: Squamous Epithelial Cells - UA 0-5 SEEN /hpf (5-10)
[2018-05-30] MEDS: Latanoprost 0.005% 1 Bottle 1 DRP EACH EYE (22:03)
[2018-05-31] VITALS (17 sets, daily range): BP systolic 86–126; BP diastolic 49–71; PULSE 55–105; RESP 16–18; TEMP 36.4–36.9; O2SAT 95–100
[2018-05-31 05:39] LABS: International Normalized Ratio 1.2; Prothrombin Time (Protime)PT. 14.9 SECONDS (11.7-14.9)
[2018-05-31 05:40] LABS: Hematocrit 34.3 % (37-47); Hemoglobin 11.6 g/dl (12.0-15.0); Mean Corp Hgb Conc 33.8 g/gl (32-36); Mean Corpuscular Hgb 32.6 pg (27.0-32.0); Mean Corpuscular Volume 96.3 fL (81-99); Mean Platelet Vol. 9.7 fl (6.2-12.0); Partial Thromboplast Time 29.6 Seconds (24.1-36.2); Platelet Count 210 K/mm3 (150-450); RBC Distribution Width CV 13.3 % (11.6-14.6); RBC Distribution Width SD 44.8 fl (35.1-43.9); Red Blood Count 3.56 M/mm3 (4.2-5.4); White Blood Count 10.1 K/mm3 (4.4-11.0)
[2018-05-31 05:45] LABS: Scan Indicated on CBC? Y/N NO
--- NOTE | 2018-05-31 05:55 | EKG12_ITS ---
Test Reason : AM EKG Blood Pressure : / mmHG Vent. Rate : 101 BPM Atrial Rate : 375 BPM P-R Int : 000 ms QRS Dur : 090 ms QT Int : 372 ms P-R-T Axes : 000 034 233 degrees QTc Int : 482 ms Atrial fibrillation with rapid ventricular response ST/T wave abnormality: consider metablolic effect; medication effect; myocardial ischemia Abnormal ECG Confirmed by SAWYER FLANAGAN, GOOD ([id number]), assignment desk editor FOREST HANNON ([id number]) on 06/04/2018 11:44:08 AM Referred By: ANDREW Confirmed By:GOOD JACQUES MD
[2018-05-31 06:00] LABS: Anion Gap 9 (5-15); BUN 23 mg/dL (7-18); BUN/Creat Ratio 28.8 RATIO (10-20); Calcium,Total 8.5 mg/dL (8.5-10.1); Chloride 101 mmol/L (98-107); EST Glomerular Filtration Rate 77 mL/min (>60); Est Glom Filt Rate - Afr Amer 93 mL/min (>60); Estimated Creatinine Clearance 56.93 ml/min; Glucose 94 mg/dL (74-106); Sodium Level 138 mmol/L (136-145)
[2018-05-31] MEDS: Metoprolol(XL)Succ 50 MG Tablet PO (06:13)
[2018-05-31] MEDS: Clopidogrel Bisulfate 75 MG Tablet PO (06:13)
[2018-05-31] MEDS: 0.9% Normal Saline 1,000 ML 15 ML IV (07:24)
--- NOTE | 2018-05-31 09:43 | CL.D_ITS ---
Patient Name: NAZ HANNON Study Date: 05/31/2018 Performing: Freddy Penn MD Ht: 62 inches 157 cm : 1955 Wt: 187.6 lbs 85 kg Age: 63 Gender: female BSA: 1.86 PROCEDURE(S) PERFORMED SI57-[id number]/COR/LV CLINICAL PROFILE AND INDICATIONS Indications: Suspected CAD Heart Failure: None Stress/Imaging Stress/Image Study Performed: No CONCLUSIONS Normal coronary arteries Cardiomyopathy: Hypertrophic RECOMMENDATIONS Medical therapy DESCRIPTION OF PROCEDURE The patient arrived to the procedure lab. The risks and benefits of the procedure as well as a full d escription of our services here and current unavailability of surgical backup were fully explained to the patient and/or their significant other prior to the catheterization. The Timeout was completed, verifying the correct patient and procedure. The patient's procedural site was prepped and draped in the usual fashion. Local anesthetic was given subcutaneously to right radial region with Lidocaine 2% . Using a modified Seldinger technique, arterial access was obtained via the right radial artery, a 6 Fr sheath was inserted. Left Coronary Artery selective angiography was performed in multiple views u sing a 5 Fr. 4.0 Peridot catheter. Right Coronary Artery selective angiography was then performed in mu ltiple views using a 5 Fr. 4.0 Peridot catheter. Left Ventriculography was performed in RODRIGUEZ projection using a 5 Fr. Pigtail catheter. LV to AO pullback pressures were then recorded.The arterial sheath was pulled and a TR Band was applied for hemostasis. 14cc of air applied CORONARY ANGIOGRAPHY DOMINANCE: Right Dominant LEFT HEART ASSESSMENT Left Ventricular Ejection Fraction: by LV Gram 65 % Normal Left Ventricular systolic function Cardiomyopathy: Hypertrophic LEFT MAIN: Angiographically normal LEFT ANTERIOR DECENDING ARTERY: Angiographically normal CIRCUMFLEX ARTERY: Angiographically normal RIGHT CORONARY ARTERY: Angiographically normal VALVE FINDINGS: Mitral Valve Insufficiency - Grade 3 COMPLICATIONS No Complications PROCEDURE MEDICATIONS Versed 1 mg IV Aspirin (325mg) 1 Tabs PO @ 05/31/2018 08:36:28 Heparin 2500 unit(s) IA 05/31/2018 09:30:43 SUMMARY OF HEMODYNAMIC DATA Time AIR REST ECG 08:24:30 AO 97/69 (82) SA 09:32:05 LV 96/8, 11 09:36:40 LV 97/10, 12 09:36:47 LV 117/9, 12 09:38:08 LV 92/19, 43 09:38:14 AO 81/50 (62) 09:38:20 Signed By Freddy Penn MD On 05/31/2018 17:28:46 Freddy Penn MD
--- NOTE | 2018-05-31 09:45 | PN.CARD_ITS ---
Subjectve: The patient seen and evaluated and underwent cardiac catheterization Objective: Vital Signs Temp Pulse Resp BP Pulse Ox 98.4 F 105 H 18 126/65 H 95 05/31/18 06:11 05/31/18 07:08 05/31/18 06:11 05/31/18 06:11 05/31/18 06:11 Oxygen Delivery Method Room Air Weight: 187 lb Body Mass Index (BMI) 34.2 Intake and Output for Last 24 Hours 05/29/18 05/30/18 05/31/18 23:59 23:59 23:59 Intake Total 0 / 0 1916 200 / 200 Balance 0 / 0 1916 200 / 200 General: Awake, Alert, Oriented x 3 HEENT: PERRL, EOMI, Sclera Non Icteric Neck: Supple, Good ROM, No Lymph Node Enlargement Lungs: Clear to auscultation Cardiovascular: Irregular Rhythm, Normal S1, Normal S2, No Murmurs, No Rubs, No Gallops Vascular: No Carotid Bruits, Normal Femoral Pulses, Normal Radial Pulses, Normal Dorsalis Pedal Pulse, Normal Posterior Tibial Pulses Abdomen: Bowel Sounds Present, Soft, Non Tender, No HSM, No Organomegaly Extremities: No Cyanosis, No Clubbing, No edema Neurological: No Focal Motor or Sensory Deficit 05/30/18 00:25: Magnesium 2.0 05/30/18 15:35: Urine Color Yellow, Urine Clarity Clear, Urine pH 6.0, Ur Specific [place] 1.015, Urine Protein Negative, Urine Glucose (UA) Normal, Urine Ketones Negative, Urine Occult Blood 50 H, Urine Nitrite Negative, Urine Bilirubin Negative, Urine Urobilinogen 4 H, Ur Leukocyte Esterase 500 H, Urine RBC 0 SEEN, Urine WBC 5-10 SEEN 05/31/18 05:05: WBC 10.1, RBC 3.56 L, Hgb 11.6 L, Hct 34.3 L, MCV 96.3, MCH 32.6 H, MCHC 33.8, RDW 13.3, RDW Differential 44.8 H, Plt Count 210, MPV 9.7 05/31/18 05:05: Sodium 138, Potassium 4.0, Chloride 101, Carbon Dioxide 28.0, Anion Gap 9, BUN 23 H, Creatinine 0.80, Est GFR (MDRD) Af Amer 93, Est GFR (MDRD) Non-Af 77, BUN/Creatinine Ratio 28.8 H, Glucose 94, Calcium 8.5 05/31/18 05:05: PT 14.9, INR 1.2, APTT 29.6 Rhythm: EKG: ECHO: Stress Test: Cardiac Cath: PCI: CT Surgery: Holter monitor: EPS: PPM: CXR: Chest CT Scan: Medical Necessity - Tobacco Use Smoking Status: Never smoker Assessment/Plan 1. Atrial fibrillation with rapid ventricular response rate * Patient presents with atrial fibrillation with rapid ventricular response rate which appears to be somewhat symptomatic * Recommendation would be to continue the beta-reji for now * Echocardiogram should be performed to assess her left ventricular function. * Ideally she should be on anticoagulation but with her recent nosebleed I would like to wait until the above is stable. * Will discontinue IV Cardizem for now 2. Asymmetric hypertrophic cardiomyopathy * Patient has been previously diagnosed with this and we will need to make sure she is on adequate negatively chronotropic agents with enough beta-reji. * Potentially needs to be avoided and thus her ventricular response rate needs to be controlled * She may ultimately need an antiarrhythmic to prevent further atrial fibrillation episodes. An agent such as Norpace may be helpful * 3. Hypertension * Blood pressure appears to be under good control at this time. * 4. Abnormal cardiac enzymes * Suspect the above is not likely secondary to plaque rupture but may be due to the atrial fibrillation with a rapid ventricular response rate especially with her asymmetrical septal hypertrophy. * Her cardiac catheterization today demonstrated essentially normal coronary arteries. 5. Epistaxis * Will likely need to be evaluated by ENT * Thank you for allowing me to participate in the care of your patient. Please don't hesitate to call if any issues arise
[2018-05-31] MEDS: Timolol 0.5% 5ML OPTH.BTL 1 DRP EACH EYE (11:13)
[2018-05-31] MEDS: Amox/Clavulanate 875 MG Tablet PO (11:13)
[2018-05-31] MEDS: BRIMONIDINE 0.2% 5ML BOTTLE 1 DRP EACH EYE (11:13)
[2018-05-31] MEDS: Loratadine 10 MG Tablet 5 MG PO (11:13)
--- NOTE | 2018-05-31 11:24 | CASEMGMT ---
SOFI EUCEDA assessment: Face to Face with patient for initial transition planning/care coordination assessment. SOFI EUCEDA introduced self and role at [facility], pt voices understanding and consents to assessment at this time. Pt is sitting up in bed in no distress at this time. Pt is A/Ox4 at this time and answers all questions appropriately at this time. Pt's , daughters, and granddaughter at bedside during assessment. Care providers, pharmacy, and demographics verified/updated at this time. PCP: Shannan Arguello Specialists: Pt states currently has no specialists but will be seeing Dr. Penn in f/u. [facility] Insurance: AA Prescription Benefit: None Living Will/HPOA: Pt states does not currently have LW/HPOA but will be working on. Pt is aware that [facility] SW can complete for pt at this time but she does not wish to do so at this time. states that they are able to do through his employer. LNOK: Elvin Silva, Living Arrangements: Transportation: Pt states no transportation concerns at this time. DME/HHC: Pt states no current DME or need for any at this time. Pt states no HHC or SNF in the past but did do OP therapy for bilat knee replacements in the past. Pt states no concerns with going home at time of discharge. Pt does not smoke or drink ETOH. Pt states no further concerns/needs at this time. CM to follow for anti-coagulation and any further discharge planning/needs. Advised pt/ to ask for CM if any further questions/concerns/needs arise, voice understanding. Plan: [place] SOFI EUCEDA
--- NOTE | 2018-05-31 13:28 | DCINST_ITS ---
You will use the following diet at home:: Cardiac Discharge Activity: Return to Normal Activity Call your doctor if you observe: Shortness of breath, Dizziness, Fainting spells, Chest pain Allergies/Adverse Reactions: Allergies No Known Allergies Allergy (Verified 06/20/16 14:49) Medications to take at Discharge Brimonidine Tartrate 0.2% [Brimonidine 0.2% 5Ml Bottle] 1 drop EACH EYE BID 02/11/16 Timolol 0.5% [Timoptic] 1 drop EACH EYE BID 02/11/16 Latanoprost 0.005% [Xalatan Opthalmic] 1 drop EACH EYE QHS 05/29/18 Amox/Clavulanate Tablet [Augmentin Tablet] 875 mg PO BID #14 tablet 05/31/18 Apixaban [Eliquis] 5 mg PO BID #60 tablet 05/31/18 Loratadine [Claritin] 5 mg PO DAILY #30 tablet 05/31/18 Metoprolol(XL)Succ [Toprol Xl (Beta Adina)] 50 mg PO BID #60 tablet 05/31/18 The following prescriptions were given: Loratadine [Claritin] 5 mg PO DAILY #30 tablet Amox/Clavulanate Tablet [Augmentin Tablet] 875 mg PO BID #14 tablet Apixaban [Eliquis] 5 mg PO BID #60 tablet Metoprolol(XL)Succ [Toprol Xl (Beta Adina)] 50 mg PO BID #60 tablet Primary Care Physician: Shannan Arguello MD [Primary Care Provider] - Please follow up with your Primary Care Physician in: 1 Week Test Results: Test results from this visit will be discussed in further detail at your follow- up appointment, if applicable. Please Follow Up With: Freddy Penn MD When: 4 weeks, office to call for appt. Proposed Discharge Date: 05/31/18
--- NOTE | 2018-05-31 13:32 | DS.PCM_ITS ---
<Brenna Patel - Last Filed: 05/31/18 13:59> Discharge Date and Diagnosis Date of Admission: 05/29/18 Date of Discharge: 05/31/18 - Primary Discharge Diagnosis 1. New onset atrial fibrillation with RVR 2. NSTEMI, demand ischemia secondary to #1 3. Acute diastolic CHF 4. Acute epistaxis 5. Hypertension 6. History of asymmetric hypertrophic cardiomyopathy 7. Rheumatoid arthritis Hospital Course and Treatment Imaging Results: Diagnostic Data Chest X-Ray 05/30/18 15:10 IMPRESSION: 1. No acute cardiopulmonary process. 2. Mild cardiomegaly. Electronically Signed: Trell Ibarra MD at 16:22 EST , Service support , Dr. Penn- Cardiology Operations: None Procedures: 2-D Echocardiogram, Cardiac catheterization Summary of Care Provided: The patient is a 63 year old F admitted 05/29/2018 A. fib with RVR, epistaxis. 1. New onset atrial fibrillation with RVR-cardiology consulted. Home metoprolol regimen increased to 50 mg twice daily. ENT ok with initiating anticoagulation given recent epistaxis with packing. Patient started on Eliquis 5 mg p.o. twice daily. Echocardiogram pending and will be reviewed prior to discharge. Follow-up with Dr. Penn in 4 weeks. 2. NSTEMI-demand ischemia secondary to #1. Cardiology consulted. Patient underwent cardiac catheterization which showed normal coronary arteries, LV gram 65%. 3. Acute diastolic CHF-BNP 940 on admission. No prior history of CHF. Echo from 2017 showed an EF of 50%, mid cavitary dynamic gradient of 64 mmHg. Left atrium moderately enlarged. Repeat echocardiogram pending. Patient received IV Lasix on admission which has since been discontinued. 4. Acute epistaxis-ENT consulted. Packing in place left nasal chamber, dissolvable packing. Continue Augmentin 875 mg p.o. twice daily for 7 days at discharge. Follow-up with Dr. Dover, ENT 06/04/2018. 5. Hypertension-stable, continue current regimen. 6. History of asymmetric hypertrophic cardiomyopathy 7. Rheumatoid arthritis-not on regimen. General: Alert, Oriented x3, Cooperative, No apparent distress HEENT: Atraumatic, PERRLA, EOMI, Normocephalic Neck: Supple, No JVD, Negative Carotid Bruits Lungs: Clear to auscultation, Normal air movement Cardiovascular: Murmur, - - Atrial relation, rate controlled Abdomen: Bowel Sounds Present, Soft, Non Tender, Non-Distended, Obese Extremities: No clubbing, No cyanosis, No edema, Capillary Refill Less than 3 Seconds Skin: No rashes, No breakdown Musculoskeletal: No Tenderness to Palpation of Joints or Extremities Neurological: Cranial nerves II-XII grossly intact, Neuro grossly intact Psych/Mental Status: Normal Affect, Appropriate Patient seen and examined prior to discharge. Physical assessment as noted above. Patient is stable for discharge with follow up recommendations as noted above. This patient was seen by MATT Bowen under the supervision of Dr. Rubin. - Physical Exam Vital Signs Temp Pulse Resp BP Pulse Ox 97.8 F 98 18 110/65 98 05/31/18 09:50 05/31/18 12:00 05/31/18 12:00 05/31/18 12:00 05/31/18 12:00 Oxygen Delivery Method Room Air Weight: 187 lb Body Mass Index (BMI) 34.2 Intake and Output for Last 24 Hours 05/29/18 05/30/18 05/31/18 23:59 23:59 23:59 Intake Total 0 / 0 1916 680 / 680 Balance 0 / 0 1916 680 / 680 Laboratory Tests Past 24 Hrs 05/30/18 05/30/18 05/31/18 00:25 15:35 05:05 WBC 10.1 RBC 3.56 L Hgb 11.6 L Hct 34.3 L MCV 96.3 MCH 32.6 H MCHC 33.8 RDW 13.3 RDW Differential 44.8 H Plt Count 210 MPV 9.7 PT INR APTT Sodium Potassium Chloride Carbon Dioxide Anion Gap BUN Creatinine Estim Creat Clear Calc Est GFR (MDRD) Af Amer Est GFR (MDRD) Non-Af BUN/Creatinine Ratio Glucose Calcium Magnesium 2.0 TSH 4.25 H Urine Color Yellow Urine Clarity Clear Urine pH 6.0 Ur Specific [place] 1.015 Urine Protein Negative Urine Glucose (UA) Normal Urine Ketones Negative Urine Occult Blood 50 H Urine Nitrite Negative Urine Bilirubin Negative Urine Urobilinogen 4 H Ur Leukocyte Esterase 500 H Urine RBC 0 SEEN Urine WBC 5-10 SEEN Ur Squamous Epith Cells 0-5 SEEN Urine Bacteria 0 SEEN Urine Mucus 0 SEEN 05/31/18 05/31/18 05:05 05:05 WBC RBC Hgb Hct MCV MCH MCHC RDW RDW Differential Plt Count MPV PT 14.9 INR 1.2 APTT 29.6 Sodium 138 Potassium 4.0 Chloride 101 Carbon Dioxide 28.0 Anion Gap 9 BUN 23 H Creatinine 0.80 Estim Creat Clear Calc 56.93 Est GFR (MDRD) Af Amer 93 Est GFR (MDRD) Non-Af 77 BUN/Creatinine Ratio 28.8 H Glucose 94 Calcium 8.5 Magnesium TSH Urine Color Urine Clarity Urine pH Ur Specific [place] Urine Protein Urine Glucose (UA) Urine Ketones Urine Occult Blood Urine Nitrite Urine Bilirubin Urine Urobilinogen Ur Leukocyte Esterase Urine RBC Urine WBC Ur Squamous Epith Cells Urine Bacteria Urine Mucus Discharge Diet: Low fat/ Low Cholesterol Discharge Activity: Return to Normal Activity Call your doctor if you observe: Shortness of breath, Dizziness, Fainting spells, Chest pain Home Medications: Medications to take at Discharge Brimonidine Tartrate 0.2% [Brimonidine 0.2% 5Ml Bottle] 1 drop EACH EYE BID 02/11/16 Timolol 0.5% [Timoptic] 1 drop EACH EYE BID 02/11/16 Latanoprost 0.005% [Xalatan Opthalmic] 1 drop EACH EYE QHS 05/29/18 Amox/Clavulanate Tablet [Augmentin Tablet] 875 mg PO BID #14 tablet 05/31/18 Apixaban [Eliquis] 5 mg PO BID #60 tablet 05/31/18 Loratadine [Claritin] 5 mg PO DAILY #30 tablet 05/31/18 Metoprolol(XL)Succ [Toprol Xl (Beta Adina)] 50 mg PO BID #60 tablet 05/31/18 Following Prescrptions Were Given to Patient: Loratadine [Claritin] 5 mg PO DAILY #30 tablet Amox/Clavulanate Tablet [Augmentin Tablet] 875 mg PO BID #14 tablet Apixaban [Eliquis] 5 mg PO BID #60 tablet Metoprolol(XL)Succ [Toprol Xl (Beta Adina)] 50 mg PO BID #60 tablet Primary Care Physician: Shannan Arguello MD [Primary Care Provider] - Please follow up with your Primary Care Physician in: 1 Week Please Follow Up With: Freddy Penn MD When: 4 weeks, office to call for appt. Please Follow Up With: Juan C Dover MD When: 06/04/18. Call for appt. Disposition: Home Minutes spent on discharge:: 35 Patient Condition:: Stable Medical Necessity - Tobacco Use Smoking Status: Never smoker Meaningful Use Info Meaningful Use Diagnoses (Choose all that apply): CHF - CHF AREN/ARB ordered at discharge?: No Reason AREN/ARB not ordered?: Hypotension Documented LVEF (%): 65 <Sae Rubin - Last Filed: 05/31/18 14:34> Hospital Course and Treatment Operations: None Procedures: 2-D Echocardiogram, Cardiac catheterization Summary of Care Provided: Patient seen and examined independently. Data reviewed. I agree with the above note by the nurse practitioner. The patient is a 63 year old F presents with A. fib with RVR from [facility]. Additionally, patient had a non-STEMI with troponins 5.45 and epistaxis. Patient was packed nasally. Patient was seen in consultation by cardiology as well ENT. Patient under went a left heart catheterization today that showed normal coronaries. Ejection fraction of 65%. Patient was cleared for anticoagulation by ENT. [] - Physical Exam General: Alert, No apparent distress HEENT: Atraumatic, Normocephalic Oral: Moist Mucosa Neck: No Nodes, Thyroid Normal Size and Texture Lungs: Clear to auscultation, Normal air movement, No rhonchi, No wheeze Cardiovascular: Regular rate, Regular Rhythm, Normal S1, Normal S2, - - 3 out of 6 systolic ejection murmur at the right upper sternal border with thrill. Abdomen: Bowel Sounds Present, Soft, Non Tender, Non-Distended Vital Signs Temp Pulse Resp BP Pulse Ox 36.6 C 98 18 110/65 98 05/31/18 09:50 05/31/18 12:00 05/31/18 12:00 05/31/18 12:00 05/31/18 12:00 Oxygen Delivery Method Room Air Weight: 84.822 kg Body Mass Index (BMI) 34.2 Intake and Output for Last 24 Hours 05/29/18 05/30/18 05/31/18 23:59 23:59 23:59 Intake Total 0 / 0 1917 / 191 680 / 680 Balance 0 / 0 1916 680 / 680 Laboratory Tests Past 24 Hrs 05/30/18 05/31/18 05/31/18 15:35 05:05 05:05 WBC 10.1 RBC 3.56 L Hgb 11.6 L Hct 34.3 L MCV 96.3 MCH 32.6 H MCHC 33.8 RDW 13.3 RDW Differential 44.8 H Plt Count 210 MPV 9.7 PT INR APTT Sodium 138 Potassium 4.0 Chloride 101 Carbon Dioxide 28.0 Anion Gap 9 BUN 23 H Creatinine 0.80 Estim Creat Clear Calc 56.93 Est GFR (MDRD) Af Amer 93 Est GFR (MDRD) Non-Af 77 BUN/Creatinine Ratio 28.8 H Glucose 94 Calcium 8.5 Thyroxine (T4) Free T3 pg/dL Urine Color Yellow Urine Clarity Clear Urine pH 6.0 Ur Specific [place] 1.015 Urine Protein Negative Urine Glucose (UA) Normal Urine Ketones Negative Urine Occult Blood 50 H Urine Nitrite Negative Urine Bilirubin Negative Urine Urobilinogen 4 H Ur Leukocyte Esterase 500 H Urine RBC 0 SEEN Urine WBC 5-10 SEEN Ur Squamous Epith Cells 0-5 SEEN Urine Bacteria 0 SEEN Urine Mucus 0 SEEN 05/31/18 05/31/18 05:05 05:05 WBC RBC Hgb Hct MCV MCH MCHC RDW RDW Differential Plt Count MPV PT 14.9 INR 1.2 APTT 29.6 Sodium Potassium Chloride Carbon Dioxide Anion Gap BUN Creatinine Estim Creat Clear Calc Est GFR (MDRD) Af Amer Est GFR (MDRD) Non-Af BUN/Creatinine Ratio Glucose Calcium Thyroxine (T4) Pending Free T3 pg/dL Pending Urine Color Urine Clarity Urine pH Ur Specific [place] Urine Protein Urine Glucose (UA) Urine Ketones Urine Occult Blood Urine Nitrite Urine Bilirubin Urine Urobilinogen Ur Leukocyte Esterase Urine RBC Urine WBC Ur Squamous Epith Cells Urine Bacteria Urine Mucus Discharge Diet: Low fat/ Low Cholesterol Discharge Activity: Return to Normal Activity Call your doctor if you observe: Shortness of breath, Dizziness, Fainting spells, Chest pain Disposition: Home Minutes spent on discharge:: 35 Patient Condition:: Stable Medical Necessity - Tobacco Use Smoking Status: Never smoker Meaningful Use Info Meaningful Use Diagnoses (Choose all that apply): CHF - CHF AREN/ARB ordered at discharge?: No Reason AREN/ARB not ordered?: Hypotension Documented LVEF (%): 65 Code Visit Inpatient E&M: 15720 Disch Hosp
[2018-05-31 14:39] LABS: Free T3 2.8 pg/mL (2.18-3.98); T4 Total, Thyroxin 9.7 ug/dL (4.8-13.9)
--- NOTE | 2018-05-31 15:00 | CASEMGMT ---
Per Lawrence COMPRESS MACHINE OPERATOR, pt to be sent home on Eliquis at discharge and script e-scribed to [facility] previously. Call to [facility] pharmacy and per tech, pratt for Eliquis is $411.31 as pt has no Rx insurance. [facility] states that cost of other meds is about $64-65. Pt provided with Eliquis card at this time with instruction, voices understanding. states 'Sometimes you just have to do what you have to do.' Advised pt/ to make Dr. Penn aware during f/u visit and pt states is scheduled to see him in about 2 weeks, voices understanding. Pt/ voice no further questions/concerns/needs at this time. Ray FARAH CM
== END 2018-05-31 16:54 | disposition home or self-care (01) | DRG 280 ==
PROVIDERS: Nurse Practitioner Family; Admitting Provider Student in an Organized Health Care Education/Training Program
DX: I48.91 Unspecified atrial fibrillation (principal); I21.4 Non-ST elevation (NSTEMI) myocardial infarction; I50.31 Acute diastolic (congestive) heart failure; I42.2 Other hypertrophic cardiomyopathy; R04.0 Epistaxis; I11.0 Hypertensive heart disease with heart failure; M06.9 Rheumatoid arthritis, unspecified; Z79.899 Other long term (current) drug therapy
CPT/HCPCS: 36415; 71045; 80048; 80061; 81001; 83735; 83880; 84436; 84443; 84481; 84484; 85025; 85027; 85610; 85730; 93005; 93306; 93458; 99152; J7030; Q9957; Q9967; A4216; C1769; C1894

== ENCOUNTER 2018-06-19 11:02 | Inpatient (IN) | payer OTHER, SELFPAY ==
[2018-05-29 17:45] VITALS: BMI 34.2
[2018-06-19] VITALS (26 sets, daily range): BP systolic 79–133; BP diastolic 43–118; PULSE 70–158; RESP 16–30; TEMP 36.3–36.8; O2SAT 94–98; BMI 34.7; BMI 34.4
--- NOTE | 2018-06-19 11:09 | EKG12_ITS ---
Test Reason : SOB Blood Pressure : / mmHG Vent. Rate : 152 BPM Atrial Rate : 182 BPM P-R Int : 000 ms QRS Dur : 088 ms QT Int : 248 ms P-R-T Axes : 000 075 241 degrees QTc Int : 394 ms Atrial fibrillation with rapid ventricular response Marked ST abnormality, possible inferior lateral subendocardial injury Abnormal ECG Confirmed by SAWYER FLANAGAN, GOOD ([id number]), society editor FOREST HANNON ([id number]) on 06/21/2018 12:39:42 PM Referred By: BRY Confirmed By:GOOD JACQUES MD
--- NOTE | 2018-06-19 11:09 | RAD_ITS ---
STUDY: X-RAY CHEST REASON FOR EXAM: Female, 63 years old. Cough. TECHNIQUE: Single AP portable view of the chest. COMPARISON: 05/30/2018. FINDINGS: The lungs are clear and expanded. There is no demonstrated pleural abnormality. There is mild cardiac enlargement. Normal mediastinum and alda. Normal visualized pulmonary arteries. Normal visualized aortic arch and descending thoracic aorta. There are diffuse degenerative changes of the visualized thoracic spine. Normal visualized ribs, clavicles, and shoulders. There is no demonstrated abnormality of the visualized soft tissue structures of the upper abdomen. RAD/Chest 1 View (Portable) IMPRESSION: No acute chest disease. Electronically Signed: Adonay Page MD at 11:47 EST , Service support ,
--- NOTE | 2018-06-19 11:10 | ED.VISSUMM ---
- ER Visit Summary Date of Service: 06/19/18 Chief Complaint: Cough, shortness of breath History of Present Illness: The patient is a 63 F with recent diagnosis of atrial fibrillation and hypertrophic cardiomyopathy presents to the emergency department with cough and shortness of breath. Patient states that she has been short of breath for the past 3 days. It did worsen overnight. She does describe difficulty laying flat. She went to her primary care today and they were concerned for pneumonia. She was sent in for further evaluation. The patient was recently admitted for atrial fibrillation with rapid ventricular response and elevated cardiac enzymes. She underwent cardiac catheterization which showed normal coronary arteries, but hypertrophic cardiomyopathy. She is not on anticoagulants she has had recurrent nosebleeds. She denies any fevers but does admit to some chills. She has had a nonproductive cough. She also feels like she cannot catch her breath. Physical Examination: Vital signs reviewed General: Well-nourished, well-developed Head: Normocephalic, atraumatic Eyes: Pupils equal and reactive, extraocular muscles intact Neck, supple, no lymphadenopathy Heart: Irregular tachycardic rate and rhythm Respiratory: No distress, diminished with crackles more than senior care up Abdomen: Soft, nontender, nondistended, no peritoneal signs Back: Nontender Extremities: Nontender, 1+ symmetric edema, no cords Skin: Normal color no rash Neuro: Alert and oriented, no focal or lateralizing deficits Test Results: [] Emergency Department Course and Treatment: EKG on arrival demonstrates atrial fibrillation with rapid ventricular response. The patient was not complaining of any chest pain. Her x-ray does not show any significant volume overload and there is no focal infiltrate. She does have a mild leukocytosis. Cardiac enzymes are normal. Patient was given IV diltiazem and started on diltiazem drip. She did have market improvement of her rate. Her heart rate is now about 100. Her dyspnea has improved. My suspicion is that this is likely dyspnea from her rather significant tachycardia with her atrial fibrillation with rapid ventricular response. The patient is still requiring diltiazem for rate control. I do feel that she is going benefit from admission. She is comfortable with this plan of care. Treatment Plan: [] Disposition: Admission Impression: 1. Atrial fibrillation with rapid ventricular response 2. Dyspnea This note was generated with AIRTAMEation software. It may contain incorrect words, spelling, and punctuation that were not noted in review of the chart prior to signing ED Disposition - Plan for ED Patient: Chief Complaint: Cough Referrals: Shannan Arguello MD [Primary Care Provider] -
[2018-06-19] MEDS: dilTIAZem 25 MG/5 ML Vial 10 MG IV BOLUS (11:24)
[2018-06-19 11:51] LABS: Absolute Lymphocyte Count 0.85 X10^3/ul (0.83-4.51); Absolute Neutrophil Count 12.4 X10^3/uL (2.0-7.7); Basophil# 0.01 X10^3/uL; Basophil% 0.1 % (0-1); Hematocrit 36.1 % (37-47); Hemoglobin 11.4 g/dl (12.0-15.0); Lymphocyte # 0.85 X10^3/ul (4.0); Lymphocyte % 5.8 % (19-41); Mean Corp Hgb Conc 31.6 g/gl (32-36); Mean Corpuscular Hgb 31.3 pg (27.0-32.0); Mean Corpuscular Volume 99.2 fL (81-99); Monocyte# 1.43 X10^3/uL; Monocyte% 9.7 % (0-10); Neutrophil # 12.36 X10^3/uL (2.7-7.7); Neutrophil % 84.3 % (47-70); Platelet Count 213 K/mm3 (150-450); RBC Distribution Width CV 14.9 % (11.6-14.6); RBC Distribution Width SD 54.3 fl (35.1-43.9); Red Blood Count 3.64 M/mm3 (4.2-5.4); White Blood Count 14.7 K/mm3 (4.4-11.0)
[2018-06-19 11:57] LABS: Differential Indicated SCAN CRITERIA MET; POSITIVE COUNT NO; POSITIVE DIFFERENTIAL NO; POSITIVE MORPHOLOGY YES
[2018-06-19 12:04] LABS: Anion Gap 13 (5-15); BUN 17 mg/dL (7-18); BUN/Creat Ratio 14.7 RATIO (10-20); Calcium,Total 8.7 mg/dL (8.5-10.1); Chloride 105 mmol/L (98-107); Creatinine, Serum 1.16 mg/dL (0.55-1.02); EST Glomerular Filtration Rate 50 mL/min (>60); Est Glom Filt Rate - Afr Amer 61 mL/min (>60); Estimated Creatinine Clearance 39.26 ml/min; Glucose 126 mg/dL (74-106); Potassium 4.4 mmol/L (3.5-5.1); Sodium Level 141 mmol/L (136-145)
[2018-06-19 12:05] LABS: Differential Comment SCANNED
[2018-06-19 12:17] LABS: BNP,B-Type NATRIURETIC PEPTIDE 1170.1 pg/mL (0-100)
--- NOTE | 2018-06-19 16:14 | PCM.HP.STD ---
Problem List (1) Atrial fibrillation with RVR Status: Acute (2) Hyperlipidemia Status: Chronic (3) Essential (primary) hypertension Status: Chronic (4) Hypertrophic cardiomyopathy Status: Chronic (5) Secondary pulmonary arterial hypertension Status: Chronic (6) Non-rheumatic tricuspid valve insufficiency Status: Chronic History of Present Illness Date of Admission: 06/19/18 Chief Complaint: SOB The patient is a 63 year old F with a PMH as below who presented to her primary care physician today for shortness of breath. She was afraid that she may have had pneumonia however while in the office her physician noticed that she was tachycardic and sent her over to the ER where she was found to be in A. fib with RVR. She was recently admitted earlier this month with A. fib after she had a left nosebleed and went to an ENT for packing. She had a troponin that time that was elevated 2.25 and she was also admitted for an an NSTEMI. She had a cardiac cath during the previous admission that showed normal coronary arteries and a hypertrophic cardiomyopathy. She also had an echo during her previous admission with an EF of 70% and a moderately severe tricuspid valve insufficiency with a pulmonary artery systolic pressure of 76. In the ER she was found to have a heart rate in the 140s-150s. A troponin was obtained which was 0.042 and a BNP was 1170. Chest x-ray was negative for any pulmonary process and there does not appear to be any vascular congestion. Of note she does have a leukocytosis which she did have on the last admission as well. Currently feels better as her heart rate has come down with the Cardizem drip. Past Medical History Past Medical History (Chronic Problems): Chronic Problems (Last Updated 05/31/18 @ 19:42 by Lolly Taylor) Hyperlipidemia (Chronic) Essential (primary) hypertension (Chronic) Hypertrophic cardiomyopathy (Chronic) Secondary pulmonary arterial hypertension (Chronic) Non-rheumatic tricuspid valve insufficiency (Chronic) Nonrheumatic mitral (valve) insufficiency (Chronic) Medical History: Medical History (Last Updated 05/31/18 @ 19:42 by Lolly Taylor) Non-ST elevation (NSTEMI) myocardial infarction (Acute) Onset Date: 05/30/18 I21.4 Atrial fibrillation with RVR (Acute) Onset Date: 05/30/18 I48.91 Hyperlipidemia (Chronic) E78.5 Essential (primary) hypertension (Chronic) I10 Hypertrophic cardiomyopathy (Chronic) I42.2 Secondary pulmonary arterial hypertension (Chronic) I27.21 Non-rheumatic tricuspid valve insufficiency (Chronic) I36.1 Nonrheumatic mitral (valve) insufficiency (Chronic) I34.0 Rheumatoid arthritis M06.9 Allergies No Known Allergies Allergy (Verified 06/19/18 11:02) Home Medications: Ambulatory Orders Medication Instructions Recorded Brimonidine Tartrate 0.2% 1 drop EACH EYE BID 02/11/16 [Brimonidine 0.2% 5Ml Bottle] Timolol 0.5% [Timoptic] 1 drop EACH EYE BID 02/11/16 Latanoprost 0.005% [Xalatan 1 drop EACH EYE QHS 05/29/18 Opthalmic] Loratadine [Claritin] 5 mg PO DAILY #30 tablet 05/31/18 Metoprolol(XL)Succ [Toprol Xl 50 mg PO BID #60 tablet 05/31/18 (Beta Adina)] Alprazolam [Xanax] 0.5 mg PO QHS PRN 06/19/18 Surgical History: Surgical History (Last Updated 05/31/18 @ 19:40 by Lolly Taylor) History of knee surgery Z98.890 History of left heart catheterization Onset Date: 05/31/18 Z98.890 Surgical History: total knee arthroplasty, - - Carpal tunnel 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 Denies: Shortness of breath at rest, Sputum production Gastrointestinal: Denies: Abdominal Pain, Nausea, Vomiting Genitourinary: Denies: Dysuria Musculoskeletal: Denies: Joint Pain, Joint Tenderness Skin: Denies: Rash, Wounds Neurological: Denies: Numbness, Tingling, Focal weakness Psychiatric: Denies: Anxiety, Depression Hematologic/ Lymphatic: Denies: Easy Bruising, Easy Bleeding VTE Information - Inpt Only VTE Present on Admission: No - Physical Exam General: Alert, Oriented x3, Cooperative, No apparent distress HEENT: Atraumatic, PERRLA, EOMI, Normocephalic Neck: Supple, No JVD Lungs: Normal air movement, No rhonchi, Wheezes, - - Coarse breath sounds Cardiovascular: Normal S1, Normal S2, Tachycardic, - - Irregular rhythm Abdomen: Soft, Non Tender, Non-Distended, No Hepato-splenomegaly, Passing Flatus Extremities: No edema, Capillary Refill Less than 3 Seconds Skin: No rashes, No breakdown Neurological: Neuro grossly intact, Sensory exam intact to light touch and pain Psych/Mental Status: Normal Affect, Appropriate Vital Signs Temp Pulse Resp BP Pulse Ox 98.2 F 93 20 H 126/65 H 97 06/19/18 13:48 06/19/18 16:00 06/19/18 16:00 06/19/18 16:00 06/19/18 16:00 Oxygen Delivery Method Room Air Weight: 188 lb 0.869 oz Body Mass Index (BMI) 34.4 Laboratory Tests Past 24 Hrs 06/19/18 06/19/18 06/19/18 11:35 11:35 11:35 WBC 14.7 H RBC 3.64 L Hgb 11.4 L Hct 36.1 L MCV 99.2 H MCH 31.3 MCHC 31.6 L RDW 14.9 H RDW Differential 54.3 H Plt Count 213 MPV 9.0 Immature Gran % (Auto) 0.100 Neut % (Auto) 84.3 H Lymph % (Auto) 5.8 L [place] % (Auto) 9.7 Eos % (Auto) 0.0 Baso % (Auto) 0.1 Absolute Neuts (auto) 12.4 H Absolute Lymphs (auto) 0.85 Total Counted Not Reportable Differential Comment SCANNED Sodium 141 Potassium 4.4 Chloride 105 Carbon Dioxide 23.0 Anion Gap 13 BUN 17 Creatinine 1.16 H Estim Creat Clear Calc 39.26 Est GFR (MDRD) Af Amer 61 Est GFR (MDRD) Non-Af 50 L BUN/Creatinine Ratio 14.7 Glucose 126 H Calcium 8.7 Troponin I 0.042 B-Natriuretic Peptide 1170.1 H Assessment/Plan All Active Problems (Last Updated 12/10/18 @ 19:42 by Lolly Taylor) Non-ST elevation (NSTEMI) myocardial infarction (Acute 05/30/18) Atrial fibrillation with RVR (Acute 05/30/18) 1. A. fib with RVR/hypertrophic cardiomyopathy/severe pulmonary hypertension/moderately severe tricuspid insufficiency/AK I -Troponin is negative -She has no other findings of volume overload and given her severe pulmonary hypertension or hypertrophic cardiomyopathy and the lack of other signs and symptoms of volume overload will not diurese at this time -Continue with Cardizem drip, will need to increase her metoprolol likely to 100 mg twice daily if she her heart rate is normal by tonight can do that for her nighttime dose of metoprolol otherwise we will ordered for the morning -Given her history of epistaxis, she will need to have that figured out prior to being started on any anticoagulation for her A. fib, she was discharged on Eliquis, however she has discontinue this given her nosebleeds. She states that she has an appointment with her ENT he this week and will determine at that time whether she wants to restart Eliquis or at the very least take a daily aspirin. -Will monitor her renal function given her recent increase in her creatinine from 0.8 to 1.16 -Given how recent she has had an echo and a cardiac cath will not repeat 2. Shortness of breath and wheezing -I did discuss with her that there is a possibility of reactive airway disease given her symptomatology -She states that she does use a wood burning stove in the winter and she seems to be getting short of breath every winter -We will see what her responses to DuoNeb therapy 3. Glaucoma -Stable -Continue with home medication DVT: Lovenox/SCDs Code Visit OBSV E&M: 13763 Initial observation care L3
[2018-06-19] MEDS: Ipratropium/Albuterol Sulfate 3 ML AMPUL.NEB INHALATION ×2 (16:53→22:39)
[2018-06-19 20:36] LABS: Magnesium 1.9 mg/dL (1.6-2.6)
[2018-06-19] MEDS: ALPRAZolam 0.5 MG Tablet PO (21:40)
[2018-06-19] MEDS: Timolol 0.5% 5ML OPTH.BTL 1 DRP EACH EYE (21:41)
[2018-06-19] MEDS: BRIMONIDINE 0.2% 5ML BOTTLE 1 DRP EACH EYE (21:41)
[2018-06-19] MEDS: Metoprolol(XL)Succ 50 MG Tablet PO (21:42)
[2018-06-19] MEDS: Latanoprost 0.005% 1 Bottle 1 DRP EACH EYE (21:44)
[2018-06-20] VITALS (31 sets, daily range): BP systolic 100–136; BP diastolic 60–90; PULSE 73–100; RESP 14–31; TEMP 36.7–37.2; O2SAT 93–96
[2018-06-20 06:40] LABS: Absolute Lymphocyte Count 1.44 X10^3/ul (0.83-4.51); Absolute Neutrophil Count 6.8 X10^3/uL (2.0-7.7); Basophil# 0.01 X10^3/uL; Basophil% 0.1 % (0-1); Eosinophil# 0.06 X10^3/uL; Eosinophils% 0.6 % (0-5); Hematocrit 31.5 % (37-47); Hemoglobin 9.9 g/dl (12.0-15.0); Lymphocyte # 1.44 X10^3/ul (4.0); Lymphocyte % 15.5 % (19-41); Mean Corp Hgb Conc 31.4 g/gl (32-36); Mean Corpuscular Hgb 31.3 pg (27.0-32.0); Mean Corpuscular Volume 99.7 fL (81-99); Mean Platelet Vol. 9.2 fl (6.2-12.0); Monocyte# 0.96 X10^3/uL; Monocyte% 10.3 % (0-10); Neutrophil # 6.84 X10^3/uL (2.7-7.7); Neutrophil % 73.4 % (47-70); Platelet Count 188 K/mm3 (150-450); RBC Distribution Width CV 15.1 % (11.6-14.6); RBC Distribution Width SD 54.2 fl (35.1-43.9); Red Blood Count 3.16 M/mm3 (4.2-5.4); White Blood Count 9.3 K/mm3 (4.4-11.0)
[2018-06-20 06:48] LABS: POSITIVE COUNT NO; POSITIVE DIFFERENTIAL NO; POSITIVE MORPHOLOGY NO
--- NOTE | 2018-06-20 06:59 | PCM.PN.HOSP ---
Subjective: Doing better than yesterday since her rates have been consistently under 100. Still with a little bit of cough, but not requiring any oxygen, feels that the duo nebs have helped. Still no swelling or edema. Vitals/I&O's: Vital Signs Temp Pulse Resp BP Pulse Ox 98.6 F 97 28 H 115/87 H 94 06/20/18 06:15 06/20/18 06:30 06/20/18 06:30 06/20/18 06:30 06/20/18 06:30 Oxygen Delivery Method Room Air Weight: 188 lb 7.924 oz Body Mass Index (BMI) 34.4 Intake and Output for Last 24 Hours 06/18/18 06/19/18 06/20/18 23:59 23:59 23:59 Intake Total 484.2 / 484.2 554.0 / 554.0 Balance 484.2 / 484.2 554.0 / 554.0 General: Alert, Oriented x3, Cooperative, No apparent distress HEENT: Atraumatic, PERRLA, EOMI, Normocephalic Neck: Supple, No JVD Lungs: Normal air movement, No rhonchi, Wheezes, Cardiovascular: Normal S1, Normal S2, Tachycardic, - - Irregular rhythm Abdomen: Soft, Non Tender, Non-Distended, No Hepato-splenomegaly, Passing Flatus Extremities: No edema, Capillary Refill Less than 3 Seconds Skin: No rashes, No breakdown Neurological: Neuro grossly intact, Sensory exam intact to light touch and pain Psych/Mental Status: Normal Affect, Appropriate Laboratory Results 06/19/18 11:35: WBC 14.7 H, RBC 3.64 L, Hgb 11.4 L, Hct 36.1 L, MCV 99.2 H, MCH 31.3, MCHC 31.6 L, RDW 14.9 H, RDW Differential 54.3 H, Plt Count 213, MPV 9.0, Immature Gran % (Auto) 0.100, Neut % (Auto) 84.3 H, Lymph % (Auto) 5.8 L, [place] % (Auto) 9.7, Eos % (Auto) 0.0, Baso % (Auto) 0.1, Absolute Neuts (auto) 12.4 H, Absolute Lymphs (auto) 0.85, Total Counted Not Reportable, Differential Comment SCANNED 06/19/18 11:35: Sodium 141, Potassium 4.4, Chloride 105, Carbon Dioxide 23.0, Anion Gap 13, BUN 17, Creatinine 1.16 H, Estim Creat Clear Calc 39.26, Est GFR (MDRD) Af Amer 61, Est GFR (MDRD) Non-Af 50 L, BUN/Creatinine Ratio 14.7, Glucose 126 H, Calcium 8.7, Troponin I 0.042 06/19/18 11:35: B-Natriuretic Peptide 1170.1 H 06/19/18 20:15: Magnesium 1.9 06/20/18 05:33: WBC 9.3, RBC 3.16 L, Hgb 9.9 L, Hct 31.5 L, MCV 99.7 H, MCH 31.3, MCHC 31.4 L, RDW 15.1 H, RDW Differential 54.2 H, Plt Count 188, MPV 9.2, Immature Gran % (Auto) 0.100, Neut % (Auto) 73.4 H, Lymph % (Auto) 15.5 L, [place] % (Auto) 10.3 H, Eos % (Auto) 0.6, Baso % (Auto) 0.1, Absolute Neuts (auto) 6.8, Absolute Lymphs (auto) 1.44, Total Counted Not Reportable 06/20/18 05:33: Sodium Pending, Potassium Pending, Chloride Pending, Carbon Dioxide Pending, Anion Gap Pending, BUN Pending, Creatinine Pending, Est GFR (MDRD) Af Amer Pending, Est GFR (MDRD) Non-Af Pending, BUN/Creatinine Ratio Pending, Glucose Pending, Calcium Pending Current Medications Albuterol/Ipratropium (Duoneb) 3 ml INHALATION Q6HWA.RT COUNTS INCLUDE 234 BEDS AT THE [facility] Last Admin: 06/19/18 22:39 Dose: 3 ml Alprazolam (Xanax) 0.5 mg PO QHS PRN PRN Reason: INSOMNIA Last Admin: 06/19/18 21:40 Dose: 0.5 mg Brimonidine Tartrate (Brimonidine 0.2% 5ml Bottle) 1 drop EACH EYE BID NEMO Last Admin: 06/19/18 21:41 Dose: 1 drop Enoxaparin Sodium (Lovenox) 40 mg SC DAILY@1000 NEMO Diltiazem HCl 125 mg/ Dextrose 125 mls @ 5 mls/hr IV .Q25H COUNTS INCLUDE 234 BEDS AT THE [facility]; Protocol Last Admin: 06/20/18 02:17 Dose: 5 mls/hr Latanoprost (Xalatan Opthalmic) 1 drop EACH EYE QHS COUNTS INCLUDE 234 BEDS AT THE [facility] Last Admin: 06/19/18 21:44 Dose: 1 drop Loratadine (Claritin) 5 mg PO DAILY COUNTS INCLUDE 234 BEDS AT THE [facility] Magnesium Hydroxide (Milk Of Magnesia) 30 ml PO DAILY PRN PRN Reason: Constipation Metoprolol Succinate (Toprol Xl (Beta Adina)) 100 mg PO BID COUNTS INCLUDE 234 BEDS AT THE [facility] Sodium Chloride () 5 - 15 ml IV UD PRN PRN Reason: SALINE FLUSH Timolol Maleate (Timoptic) 1 drop EACH EYE BID COUNTS INCLUDE 234 BEDS AT THE [facility] Last Admin: 06/19/18 21:41 Dose: 1 drop Medical Necessity - Tobacco Use Smoking Status: Never smoker Assessment/Plan All Active Problems (Last Updated 05/31/18 @ 19:42 by Lolly Taylor) Non-ST elevation (NSTEMI) myocardial infarction (Acute 05/30/18) Atrial fibrillation with RVR (Acute 05/30/18) 1. A. fib with RVR/hypertrophic cardiomyopathy/severe pulmonary hypertension/moderately severe tricuspid insufficiency/AK I (resolved) -Troponin is negative -She has no other findings of volume overload and given her severe pulmonary hypertension or hypertrophic cardiomyopathy and the lack of other signs and symptoms of volume overload will not diurese at this time -Continue with Cardizem drip, will increase her metoprolol to 100 mg twice daily -Given her history of epistaxis, she will need to have that figured out prior to being started on any anticoagulation for her A. fib, she was discharged on Eliquis, however she has discontinue this given her nosebleeds. She states that she has an appointment with her ENT he this week and will determine at that time whether she wants to restart Eliquis or at the very least take a daily aspirin. -Will monitor her renal function given her recent increase in her creatinine from 0.8 to 1.16 -Given how recent she has had an echo and a cardiac cath will not repeat 2. Shortness of breath and wheezing -I did discuss with her that there is a possibility of reactive airway disease given her symptomatology -She states that she does use a wood burning stove in the winter and she seems to be getting short of breath every winter -We will see what her responses to DuoNeb therapy -Leukocytosis resolved without any intervention. 3. Glaucoma -Stable -Continue with home medication DVT: Lovenox/SCDs Code Visit Inpatient E&M: 50349 Subs Hosp L2
[2018-06-20 07:03] LABS: Anion Gap 11 (5-15); BUN 13 mg/dL (7-18); BUN/Creat Ratio 20.2 RATIO (10-20); Calcium,Total 8.3 mg/dL (8.5-10.1); Chloride 104 mmol/L (98-107); Creatinine, Serum 0.64 mg/dL (0.55-1.02); EST Glomerular Filtration Rate 99 mL/min (>60); Est Glom Filt Rate - Afr Amer 120 mL/min (>60); Estimated Creatinine Clearance 71.16 ml/min; Glucose 85 mg/dL (74-106); Sodium Level 139 mmol/L (136-145)
[2018-06-20] MEDS: Ipratropium/Albuterol Sulfate 3 ML AMPUL.NEB INHALATION ×3 (07:42→19:57)
[2018-06-20] MEDS: Metoprolol(XL)Succ 100 MG Tablet PO ×2 (09:41→22:06)
[2018-06-20] MEDS: Loratadine 10 MG Tablet 5 MG PO (09:42)
[2018-06-20] MEDS: BRIMONIDINE 0.2% 5ML BOTTLE 1 DRP EACH EYE ×2 (09:42→22:05)
[2018-06-20] MEDS: Timolol 0.5% 5ML OPTH.BTL 1 DRP EACH EYE ×2 (09:42→22:06)
[2018-06-20] MEDS: 0.9% NaCl Peripheral Flush Adult/Peds IV (11:10)
[2018-06-20] MEDS: Acetaminophen 325 MG Tablet 650 MG PO (19:17)
[2018-06-20] MEDS: ALPRAZolam 0.5 MG Tablet PO (22:05)
[2018-06-20] MEDS: Latanoprost 0.005% 1 Bottle 1 DRP EACH EYE (22:08)
[2018-06-21] VITALS (8 sets, daily range): BP systolic 119–129; BP diastolic 69–86; PULSE 79–106; RESP 12–18; TEMP 36.5–36.8; O2SAT 92–98
[2018-06-21 01:52] LABS: Absolute Lymphocyte Count 1.67 X10^3/ul (0.83-4.51); Absolute Neutrophil Count 4.5 X10^3/uL (2.0-7.7); Basophil# 0.01 X10^3/uL; Basophil% 0.1 % (0-1); Eosinophil# 0.07 X10^3/uL; Hematocrit 32.9 % (37-47); Hemoglobin 10.2 g/dl (12.0-15.0); Lymphocyte # 1.67 X10^3/ul (4.0); Lymphocyte % 24.3 % (19-41); Mean Corpuscular Hgb 30.8 pg (27.0-32.0); Mean Corpuscular Volume 99.4 fL (81-99); Monocyte# 0.64 X10^3/uL; Monocyte% 9.3 % (0-10); Neutrophil # 4.47 X10^3/uL (2.7-7.7); Platelet Count 183 K/mm3 (150-450); RBC Distribution Width SD 54.5 fl (35.1-43.9); Red Blood Count 3.31 M/mm3 (4.2-5.4); White Blood Count 6.9 K/mm3 (4.4-11.0)
[2018-06-21 02:01] LABS: POSITIVE COUNT NO; POSITIVE DIFFERENTIAL NO; POSITIVE MORPHOLOGY NO
[2018-06-21 02:13] LABS: Anion Gap 8 (5-15); BUN 16 mg/dL (7-18); BUN/Creat Ratio 21.3 RATIO (10-20); Calcium,Total 8.3 mg/dL (8.5-10.1); Chloride 108 mmol/L (98-107); Creatinine, Serum 0.75 mg/dL (0.55-1.02); EST Glomerular Filtration Rate 83 mL/min (>60); Est Glom Filt Rate - Afr Amer 100 mL/min (>60); Estimated Creatinine Clearance 60.72 ml/min; Glucose 112 mg/dL (74-106); Magnesium 1.9 mg/dL (1.6-2.6); Sodium Level 140 mmol/L (136-145)
[2018-06-21] MEDS: Ipratropium/Albuterol Sulfate 3 ML AMPUL.NEB INHALATION (07:07)
[2018-06-21] MEDS: Timolol 0.5% 5ML OPTH.BTL 1 DRP EACH EYE (09:16)
[2018-06-21] MEDS: Metoprolol(XL)Succ 100 MG Tablet PO (09:16)
[2018-06-21] MEDS: Loratadine 10 MG Tablet 5 MG PO (09:16)
[2018-06-21] MEDS: BRIMONIDINE 0.2% 5ML BOTTLE 1 DRP EACH EYE (09:16)
--- NOTE | 2018-06-21 10:26 | PCM.DC ---
You will use the following diet at home:: Cardiac Your food should be the consistency of: Regular Your liquids should be the consistency of: Regular/Thin Discharge Activity: Return to Normal Activity Weight Bearing Status: Weight bearing as tolerated Call your doctor if you observe: Shortness of breath, Dizziness, Increased palpitations (irregular heartbeat) Allergies/Adverse Reactions: Allergies No Known Allergies Allergy (Verified 06/19/18 11:02) Medications to take at Discharge Brimonidine Tartrate 0.2% [Brimonidine 0.2% 5Ml Bottle] 1 drop EACH EYE BID 02/11/16 Timolol 0.5% [Timoptic] 1 drop EACH EYE BID 02/11/16 Latanoprost 0.005% [Xalatan Opthalmic] 1 drop EACH EYE QHS 05/29/18 Loratadine [Claritin] 5 mg PO DAILY #30 tablet 05/31/18 Alprazolam [Xanax] 0.5 mg PO QHS PRN 06/19/18 Metoprolol(XL)Succ [Toprol Xl (Beta Adina)] 100 mg PO BID #60 tablet 06/21/18 The following prescriptions were given: Metoprolol(XL)Succ [Toprol Xl (Beta Adina)] 100 mg PO BID #60 tablet Primary Care Physician: Shannan Arguello MD [Primary Care Provider] - Please follow up with your Primary Care Physician in: one week Test Results: Test results from this visit will be discussed in further detail at your follow-up appointment, if applicable. Please Follow Up With: Freddy Penn MD When: 1-2 weeks Please Follow Up With: ENT surgeon about epistaxis in 1 week Proposed Discharge Date: 06/21/18
--- NOTE | 2018-06-21 10:29 | DCINST_ITS ---
You will use the following diet at home:: Cardiac Your food should be the consistency of: Regular Your liquids should be the consistency of: Regular/Thin Discharge Activity: Return to Normal Activity Weight Bearing Status: Weight bearing as tolerated Call your doctor if you observe: Shortness of breath, Dizziness, Increased palpitations (irregular heartbeat) Allergies/Adverse Reactions: Allergies No Known Allergies Allergy (Verified 06/19/18 11:02) Medications to take at Discharge Brimonidine Tartrate 0.2% [Brimonidine 0.2% 5Ml Bottle] 1 drop EACH EYE BID 02/11/16 Timolol 0.5% [Timoptic] 1 drop EACH EYE BID 02/11/16 Latanoprost 0.005% [Xalatan Opthalmic] 1 drop EACH EYE QHS 05/29/18 Loratadine [Claritin] 5 mg PO DAILY #30 tablet 05/31/18 Alprazolam [Xanax] 0.5 mg PO QHS PRN 06/19/18 Metoprolol(XL)Succ [Toprol Xl (Beta Adina)] 100 mg PO BID #60 tablet 06/21/18 The following prescriptions were given: Metoprolol(XL)Succ [Toprol Xl (Beta Adina)] 100 mg PO BID #60 tablet Primary Care Physician: Shannan Arguello MD [Primary Care Provider] - Please follow up with your Primary Care Physician in: one week Test Results: Test results from this visit will be discussed in further detail at your follow- up appointment, if applicable. Please Follow Up With: Freddy Penn MD When: 1-2 weeks Please Follow Up With: ENT surgeon about epistaxis in 1 week Proposed Discharge Date: 06/21/18
--- NOTE | 2018-06-21 10:29 | DS.PCM_ITS ---
Discharge Date and Diagnosis Date of Admission: 06/19/18 Date of Discharge: 06/21/18 - Primary Discharge Diagnosis Afib with RVR - Secondary Discharge Diagnosis Chronic Problems (Last Updated 05/31/18 @ 19:42 by Lolly Taylor) Hyperlipidemia (Chronic) Essential (primary) hypertension (Chronic) Hypertrophic cardiomyopathy (Chronic) Secondary pulmonary arterial hypertension (Chronic) Non-rheumatic tricuspid valve insufficiency (Chronic) Nonrheumatic mitral (valve) insufficiency (Chronic) Hospital Course and Treatment Imaging Results: Diagnostic Data Chest X-Ray 06/19/18 11:09 IMPRESSION: No acute chest disease. Electronically Signed: Adonay Page MD at 11:47 EST , Service support , Operations: None Summary of Care Provided: The patient is a 63 year old F with a past medical history as listed below who was admitted through the ED with a complaint of shortness of breath. She had been see PCP thinking she may have pneumonia but she was noted to be tachycardic and was sent to the ED where she was found to be in A. fib with RVR. She was fo und to have a heart rate in the 140s and 150s and BNP was 1970. Initial troponin was 0.042. Chest x-ray showed no acute cardiopulmonary process. She was started on Cardizem drip which helped with her heart rate and she was admitted and managed for A. fib with RVR. Patient also required breathing treatments during admission on account of wheezing which she attributed to her having a wood stove in her home. Patient was on anticoagulation on account of a history of nosebleed and patient was going to follow-up with the ENT doctor to ascertain the cause of the nose. And after that to follow-up with java application developer with decision to be made about whether to start patient on oral anticoagulation. Her metoprolol dose was increased to 100 mg twice daily. Patient remained stable and she was discharged home on 06/21/2018. She is to follow-up with her primary care doctor ENT surgeon and her java application developer upon discharge. Patient seen and examined. She had no complaints and felt well. She denied any fever or chills, any cough or chest pain, any shortness of breath, abdominal pain, any diarrhea vomiting. Review of systems otherwise negative. Labs and vitals reviewed. Medications reviewed and reconciled. She was given a script for PO metoprolol 100mg bid and for duonebs aerosols [] Objective: Vital Signs Height 5 ft 2 in Weight: 189 lb 6.033 oz Weight in Pounds 189.4 lbs Pulse Ox [AMBULATING on Room 92 Air] Pulse Ox [At REST on Room Air] 97 Pulse Ox 97 Temperature 98.2 F Pulse Rate 100 Respiratory Rate 12 Blood Pressure [2nd BP] 108/60 Blood Pressure 129/86 Blood Pressure Position [2nd Semi-Fowlers BP] Blood Pressure Position Semi-Fowlers - Physical Exam General: Alert, Oriented x3, Cooperative HEENT: Atraumatic, PERRLA, EOMI, Normocephalic Oral: Moist Mucosa Neck: Supple, No JVD, Negative Carotid Bruits Lungs: Wheezes, - - mild wheezing bilaterally Cardiovascular: Normal S1, Normal S2, No murmurs, Irregular Rate Abdomen: Bowel Sounds Present, Soft, Non Tender, Non-Distended, No Hepato- splenomegaly Extremities: No clubbing, No cyanosis, No edema, Capillary Refill Less than 3 Seconds Skin: No rashes, No breakdown Musculoskeletal: No Tenderness to Palpation of Joints or Extremities Lymphatic: No Cervical, Supraclavicular, or Inguinal Adenopathy Neurological: Cranial nerves II-XII grossly intact Psych/Mental Status: Normal Affect, Appropriate, Alert and oriented to time, place, person, mood and affect Vital Signs Temp Pulse Resp BP Pulse Ox 98.2 F 100 12 129/86 H 97 06/21/18 09:15 06/21/18 09:16 06/21/18 09:15 06/21/18 09:15 06/21/18 09:53 Oxygen Delivery Method Room Air Weight: 189 lb 6.033 oz Body Mass Index (BMI) 34.4 Intake and Output for Last 24 Hours 06/19/18 06/20/18 06/21/18 23:59 23:59 23:59 Intake Total 484.2 / 484.2 1692.0 / 1692.0 240 / 240 Balance 484.2 / 484.2 1692.0 / 1692.0 240 / 240 Laboratory Tests Past 24 Hrs 06/21/18 06/21/18 01:30 01:30 WBC 6.9 RBC 3.31 L Hgb 10.2 L Hct 32.9 L MCV 99.4 H MCH 30.8 MCHC 31.0 L RDW 15.0 H RDW Differential 54.5 H Plt Count 183 MPV 9.0 Immature Gran % (Auto) 0.300 Neut % (Auto) 65.0 Lymph % (Auto) 24.3 [place] % (Auto) 9.3 Eos % (Auto) 1.0 Baso % (Auto) 0.1 Absolute Neuts (auto) 4.5 Absolute Lymphs (auto) 1.67 Total Counted Not Reportable Sodium 140 Potassium 4.0 Chloride 108 H Carbon Dioxide 24.0 Anion Gap 8 BUN 16 Creatinine 0.75 Estim Creat Clear Calc 60.72 Est GFR (MDRD) Af Amer 100 Est GFR (MDRD) Non-Af 83 BUN/Creatinine Ratio 21.3 H Glucose 112 H Calcium 8.3 L Magnesium 1.9 Diagnostic Data Chest X-Ray 06/19/18 11:09 IMPRESSION: No acute chest disease. Electronically Signed: Adonay Page MD at 11:47 EST , Service support , Discharge Activity: Return to Normal Activity Weight Bearing Status: Weight bearing as tolerated Call your doctor if you observe: Shortness of breath, Dizziness, Increased palpitations (irregular heartbeat) Home Medications: Medications to take at Discharge Brimonidine Tartrate 0.2% [Brimonidine 0.2% 5Ml Bottle] 1 drop EACH EYE BID 02/11/16 Timolol 0.5% [Timoptic] 1 drop EACH EYE BID 02/11/16 Latanoprost 0.005% [Xalatan Opthalmic] 1 drop EACH EYE QHS 05/29/18 Loratadine [Claritin] 5 mg PO DAILY #30 tablet 05/31/18 Alprazolam [Xanax] 0.5 mg PO QHS PRN 06/19/18 Ipratropium/Albuterol Sulfate [Duoneb] 3 ml INHALATION Q6H.RT #30 ampul.neb 06/21/18 Metoprolol(XL)Succ [Toprol Xl (Beta Adina)] 100 mg PO BID #60 tablet 06/21/18 Following Prescrptions Were Given to Patient: Ipratropium/Albuterol Sulfate [Duoneb] 3 ml INHALATION Q6H.RT #30 ampul.neb Metoprolol(XL)Succ [Toprol Xl (Beta Adina)] 100 mg PO BID #60 tablet Primary Care Physician: Shannan Arguello MD [Primary Care Provider] - Please follow up with your Primary Care Physician in: one week Please Follow Up With: Freddy Penn MD When: 1-2 weeks Please Follow Up With: ENT surgeon about epistaxis in 1 week Disposition: Home Minutes spent on discharge:: 40 Patient Condition:: Stable Medical Necessity - Tobacco Use Smoking Status: Never smoker Meaningful Use Info Meaningful Use Diagnoses (Choose all that apply): None applicable Code Visit Inpatient E&M: 94157 Disch Hosp
--- NOTE | 2018-06-21 10:43 | CASEMGMT ---
SOFI EUCEDA assessment: Face to Face with patient for initial transition planning/care coordination assessment. SOFI EUCEDA introduced self and role at [facility], pt voices understanding and consents to assessment at this time. Pt is sitting up on side of bed in no distress at this time. Pt is A/Ox4 at this time and answers all questions appropriately at this time. Care providers, pharmacy, and demographics verified/updated at this time. PCP: Jos Specialists: Isamar, cardio; ENT Preferred [facility]acy: [facility] Insurance: AA Prescription Benefit: Self pay and states no concerns Living Will/HPOA: Pt states does not have LW/HPOA and declines info at this time. LNOK: Elvin Silva, Living Arrangements: Pt states lives on main level of 2 story farm house and states no concerns at home at this time. Pt states no concerns with ADL's Transportation: Pt states no transportation concerns at this time. DME/HHC: Pt states has a cane and walker but does not use. Pt states no need for any further DME at this time. Pt states no hx of HHC or SNF in the past. Pt states has had OP therapy in [place] in the past s/p bilat knee replacement. Pt states no concerns with going home at time of discharge. Pt states does not smoke or drink ETOH. Pt states no further concerns/needs at this time. CM to follow for any further discharge planning/needs. Advised pt to ask for CM if any further questions/concerns/needs arise, voices understanding. Plan: [place]FI EUCEDA
--- NOTE | 2018-06-24 14:41 | CASEMGMT ---
SOFI EUCEDA Discharge Follow-Up Phone Call. Lace: 10 Strata: 3 Discharge Date: 06-21-18 Adm Dx: A-fib RVR Attempted discharge follow-up phone call. No answer. Left message for pt to return call to RV SERVICERMarivel FARAH CM, if she has any questions or concerns re: discharge instructions, medications, or any other concerns/needs. Phone number provided. Nikki HARMON RN CM
== END 2018-06-21 13:53 | disposition home or self-care (01) | DRG 281 ==
LOC: ED 11:26 → PCU 13:26
PROVIDERS: Hospitalist; Admitting Provider Family Medicine; Emergency Provider Emergency Medicine; Visit Provider Student in an Organized Health Care Education/Training Program
DX: I48.91 Unspecified atrial fibrillation (principal); I21.4 Non-ST elevation (NSTEMI) myocardial infarction; N17.9 Acute kidney failure, unspecified; I42.2 Other hypertrophic cardiomyopathy; E78.5 Hyperlipidemia, unspecified; I27.21 Secondary pulmonary arterial hypertension; I36.1 Nonrheumatic tricuspid (valve) insufficiency; I34.0 Nonrheumatic mitral (valve) insufficiency; M06.9 Rheumatoid arthritis, unspecified; I10 Essential (primary) hypertension; H40.9 Unspecified glaucoma
CPT/HCPCS: 36415; 71045; 80048; 83735; 83880; 84484; 85025; 93005; 94640; 99285; A4216

== ENCOUNTER → 2020-01-26 14:12 | Outpatient (CLI) | payer SELFPAY ==
[2019-07-14 11:09] VITALS: BMI 35.1
--- NOTE | 2020-01-26 14:20 | ECHOCS_ITS ---
Reason For Study: HOCM Procedure This was a 2D Doppler, Color Flow transthoracic echocardiogram. Contrast injection was performed. Exam performed in department. Left Ventricle Normal LV size. Post operative septal motion. The estimated ejection fraction is 53 %. Unable to assess diastolic dysfunction due to arrhythmia. There is borderline global hypokinesis of the left ventricle. Right Ventricle Normal RV size. Normal systolic function. Atria The left atrium is moderately enlarged. The right atrium is mildly enlarged. Mitral Valve Trivial eccentric mitral valve insufficiency. An annuloplasty ring is noted in the mitral position. Status post mitral valve repair with annuloplasty ring. Lazar ring #35. Tricuspid Valve Normal tricuspid valve. Moderate (2+) tricuspid valve insufficiency. Pulmonary artery systolic pressure is 58 mmHg. An annuloplasty ring is noted in the tricuspid position. MC #3 delgado Ring. Aortic Valve Trisinus/trileaflet aortic valve. Mild (1+) eccentric aortic valve insufficiency. Pulmonic Valve Normal pulmonic valve. Great Vessels Normal aortic root. The pulmonary artery is normal size. Normal inferior vena cava. Pericardium/Pleural Trivial pericardial effusion. Small left pleural effusion. Medication 22 gauge I.V. with prn adaptor inserted into right arm. Diluted definity 3ml given slow IV push to enhance endocardial definition. MMode/2D Measurements & Calculations LVIDd: 5.3 cm IVSd: 1.1 cm Ao root diam: 3.0 cm LVIDs: 4.2 cm LVPWd: 1.5 cm FS: 20.8 % LAV(MOD-bp): 82.4 ml LA A4 area: 27.5 cm2 LA dimension(2D): 5.1 cm LAV(MOD-bp) Indexed: 44.0 ml/m2 LAV(MOD-sp2): 62.6 ml LAV(MOD-sp4): 106.5 ml RA A4 area: 21.7 cm2 Doppler Measurements & Calculations MV E max ajay: 173.5 cm/sec MV V2 max: 182.3 cm/sec Ao V2 max: 146.2 cm/sec MV max P.3 mmHg Ao max P.6 mmHg MV V2 mean: 110.5 cm/sec Ao V2 mean: 102.0 cm/sec MV mean P.8 mmHg Ao mean P.6 mmHg MV V2 VTI: 27.7 cm Ao V2 VTI: 20.2 cm LV V1 max: 121.3 cm/sec PA V2 max: 91.8 cm/sec TR max ajay: 369.6 cm/sec LV V1 max P.9 mmHg TR max P.6 mmHg Interpretation Summary Normal LV size. Post operative septal motion. The estimated ejection fraction is 53 %. An annuloplasty ring is noted in the tricuspid position. Moderate (2+) tricuspid valve insufficiency. Pulmonary artery systolic pressure is 58 mmHg. The left atrium is moderately enlarged. Unable to assess diastolic dysfunction due to arrhythmia. Status post mitral valve repair with annuloplasty ring. Ordering Physician: DOMINIC CONKLIN Referring Physician: Ju Olsen Performed By: Melita Coppola, KANNAN, RVT
== END ==
PROVIDERS: PCP Nurse Practitioner Family
DX: I42.1 Obstructive hypertrophic cardiomyopathy (principal); I34.0 Nonrheumatic mitral (valve) insufficiency; Z98.890 Other specified postprocedural states
CPT/HCPCS: 93306; Q9957; A4216; C8929

== ENCOUNTER 2020-01-28 17:02 | Emergency (ER) | payer OTHER, SELFPAY ==
[2020-01-26 15:51] VITALS: BMI 34.7
[2020-01-28 17:04] VITALS: BP 145/77; PULSE 89; RESP 16; TEMP 36.2; O2SAT 96; BMI 34.7
[2020-01-28] MEDS: Mixture 30 ML Bottle TOPICAL (18:09)
[2020-01-28 18:25] LABS: Absolute Lymphocyte Count 0.88 X10^3/uL (0.83-4.51); Absolute Neutrophil Count 3.6 X10^3/uL (2.0-7.7); Basophil# 0.02 X10^3/uL; Basophil% 0.4 % (0-1); Eosinophil# 0.07 X10^3/uL; Eosinophils% 1.4 % (0-5); Hematocrit 31.5 % (37-47); Hemoglobin 10.1 g/dL (12.0-15.0); Lymphocyte # 0.88 X10^3/ul (4.0); Mean Corp Hgb Conc 32.1 g/dL (32-36); Mean Corpuscular Hgb 30.9 pg (27.0-32.0); Mean Corpuscular Volume 96.3 fL (81-99); Mean Platelet Vol. 8.7 fl (6.2-12.0); Monocyte# 0.62 X10^3/uL; NRBC Flagged by Analyzer 0 % (0-5); Neutrophil # 3.57 X10^3/uL (2.7-7.7); Neutrophil % 68.8 % (47-70); Platelet Count 279 K/mm3 (150-450); RBC Distribution Width SD 45.6 fl (35.1-43.9); Red Blood Count 3.27 M/mm3 (4.2-5.4); White Blood Count 5.2 K/mm3 (4.4-11.0)
[2020-01-28 18:29] LABS: International Normalized Ratio 1.2; Partial Thromboplast Time 27.9 Seconds (24.1-36.2); Prothrombin Time (Protime)PT. 14.6 SECONDS (11.7-14.9)
[2020-01-28 18:30] LABS: Anion Gap 7 (5-15); BUN 11 mg/dL (7-18); BUN/Creat Ratio 17.3 RATIO (10-20); Chloride 101 mmol/L (98-107); Creatinine, Serum 0.64 mg/dL (0.55-1.02); EST Glomerular Filtration Rate 100 mL/min (>60); Est Glom Filt Rate - Afr Amer 121 mL/min (>60); Estimated Creatinine Clearance 70.24 ml/min; Glucose 98 mg/dL (74-106); Potassium 3.3 mmol/L (3.5-5.1); Sodium Level 137 mmol/L (136-145)
--- NOTE | 2020-01-28 19:25 | ED.DCSUM_ITS ---
- ER Visit Summary Date of Service: 01/28/20 Chief Complaint: Nosebleed History of Present Illness: The patient is a 64 F who goes to [facility]. She is also seen an early childhood education specialist in [place] named Dr. Rios. She reports that she has nosebleeds that began 3 days ago. States the left side will bleed and last hours at a time. She is concerned because 3 weeks ago she had an aortic valve and mitral valve repair. She is not on anticoagulants currently. However she did get heparin then and is concerned this is due to that. Patient reports that she was taking aspirin, but stopped this 3 days ago. Review of systems: General: No fever, chills, cold sweats. Cardiovascular: No chest pain, palpitations. Respiratory: No cough, shortness of breath, dyspnea on exertion. Gastrointestinal: No abdominal pain, nausea, vomiting, diarrhea, melena, or hematochezia. Genitourinary: No dysuria, frequency, hematuria. Skin: No rash. Neuro: No headache, numbness, weakness. Physical Examination: Vitals: Stable. Afebrile. General: Well-nourished and well-developed. Head: Normocephalic atraumatic. HEENT: There is clot in the left nares with active bleeding posteriorly. When this is removed I am unable to visualize a source of bleeding anteriorly. Neck: Supple, no lymphadenopathy. No JVD. Nontender. Cardiovascular: Regular rate and rhythm. 2 out of 6 systolic murmur. Respiratory: No respiratory distress. Clear to auscultation bilaterally. Abdominal: Soft, nontender, nondistended, normal bowel sounds. No guarding, rebound, or peritoneal signs. Back: Nontender. Extremities: Nontender, no edema. Skin: Normal color, no rash. Neurologic: Alert and oriented ?3. Cranial nerves II through XII are intact. Normal strength and sensation. Psych: Normal affect. Test Results: CBC shows an H&H of 10.1 and 31.5, lymphocytes of 17, monocytes of 12. Her hemoglobin on June 212017 was 10.2. Chem-7 shows a potassium of 3.3. INR is 1.2. PTT is 27.9. Emergency Department Course and Treatment: I attempted to place a rapid Rhino without success. The patient then had a Merisel placed and tolerated this well. She was given Keflex p.o. Treatment Plan: Patient will be discharged on Keflex and instructed to follow-up with her ENT in 3 to 5 days for another exam. She is given the number for Dr. Singh here in town in case she decides that she would like to follow-up with him. Return to the emergency department for any worsening symptoms. Disposition: To home in improved and stable condition. Impression: 1. Epistaxis on left. 2. Anemia. This note was generated with [employer] dictation software. It may contain incorrect words, spelling, and punctuation that were not noted in review of the chart prio r to signing ED Disposition - Plan for ED Patient: Disposition: Home or Assisted Living Instructions: Nosebleed Prescriptions: Amoxicillin 500 mg PO TID #21 tab Prescription Printed Referrals: Carlos Singh MD [STAFF PHYSICIAN] - 3-5 Days
[2020-01-28] MEDS: AMOXICILLIN 500 MG CAPSULE PO (19:40)
[2020-01-28 19:44] VITALS: BP 92/53; PULSE 83; RESP 16; O2SAT 97
== END 2020-01-28 19:46 | disposition home or self-care (01) ==
LOC: ED 17:53
PROVIDERS: Emergency Provider Emergency Medicine; PCP Nurse Practitioner Family
DX: R04.0 Epistaxis (principal); D64.9 Anemia, unspecified; I10 Essential (primary) hypertension; Z79.82 Long term (current) use of aspirin
CPT/HCPCS: 30903; 80048; 85025; 85610; 85730; 99284; A4216

== ENCOUNTER → 2022-02-19 | Outpatient (CLI) | payer OTHER, SELFPAY | END | disposition home or self-care (01) | LOC: PSN 08:32 | PROVIDERS: PCP Nurse Practitioner Family; Referring Provider Nurse Practitioner Gerontology; Visit Provider Nurse Practitioner Gerontology | DX: R00.1 Bradycardia, unspecified (principal) | CPT/HCPCS: 93225; 93226 ==

== ENCOUNTER → 2022-06-10 | Outpatient (CLI) | payer OTHER, SELFPAY ==
[2022-06-10 10:49] LABS: Hematocrit 46.1 % (37-47); Hemoglobin 14.2 g/dL (12.0-15.0); Mean Corp Hgb Conc 30.8 g/dL (32-36); Mean Corpuscular Hgb 30.6 pg (27.0-32.0); Mean Corpuscular Volume 99.4 fL (81-99); Mean Platelet Vol. 10.2 fl (6.2-12.0); Platelet Count 162 K/mm3 (150-450); RBC Distribution Width CV 14.3 % (11.6-14.6); Red Blood Count 4.64 M/mm3 (4.2-5.4); White Blood Count 4.4 K/mm3 (4.4-11.0)
[2022-06-10 11:14] LABS: BNP,B-Type NATRIURETIC PEPTIDE 1320.1 pg/mL (0-100)
[2022-06-10 11:18] LABS: Anion Gap 4 (5-15); BUN 22 mg/dL (7-18); BUN/Creat Ratio 22.1 RATIO (10-20); Calcium,Total 9.7 mg/dL (8.5-10.1); Chloride 99 mmol/L (98-107); Creatinine, Serum 0.99 mg/dL (0.55-1.02); EST Glomerular Filtration Rate 59 mL/min (>60); Est Glom Filt Rate - Afr Amer 72 mL/min (>60); Glucose 101 mg/dL (74-106); Potassium 4.1 mmol/L (3.5-5.1); Sodium Level 136 mmol/L (136-145)
== END | disposition home or self-care (01) ==
PROVIDERS: PCP Nurse Practitioner Family; Referring Provider Physician Assistant Medical; Visit Provider Physician Assistant Medical
DX: R05.8 Other specified cough (principal); I42.2 Other hypertrophic cardiomyopathy; I50.31 Acute diastolic (congestive) heart failure; I48.0 Paroxysmal atrial fibrillation; R06.02 Shortness of breath; Z86.2 Personal history of diseases of the blood and blood-forming organs and certain disorders involving the immune mechanism
CPT/HCPCS: 36415; 80048; 83880; 85027

== ENCOUNTER → 2023-09-28 | Outpatient (CLI) | payer SELFPAY, OTHER ==
--- NOTE | 2023-09-28 13:02 | ECHOCS_ITS ---
Reason For Study: Murmur Procedure This was a 2D Doppler, Color Flow transthoracic echocardiogram. Contrast injection was performed. Exam performed in department. Left Ventricle Normal LV size. The left ventricular ejection fraction is 35 %. Stage 3 diastolic dysfunction. There is moderate global hypokinesis of the left ventricle. Right Ventricle Normal RV size. Mild global right ventricular systolic dysfunction. Atria The left atrium is moderately enlarged. The right atrium is moderately enlarged. Mitral Valve Status post mitral valve repair with annuloplasty ring. Tricuspid Valve Moderate (2+) tricuspid valve insufficiency. Pulmonary artery systolic pressure is 68 mmHg. Moderate pulmonary hypertension. An annuloplasty ring is noted in the tricuspid position. Aortic Valve Trisinus/trileaflet aortic valve. Mild (1+) eccentric aortic valve insufficiency. Pulmonic Valve Normal pulmonic valve. Great Vessels Normal aortic root. The pulmonary artery is normal size. Normal inferior vena cava. Pericardium/Pleural No pericardial effusion. Medication 22 gauge I.V. with prn adaptor inserted into right arm. Diluted definity 2ml given slow IV push to enhance endocardial definition. MMode/2D Measurements & Calculations LVIDd: 5.6 cm IVSd: 1.3 cm Ao root diam: 3.2 cm LVIDs: 4.7 cm LVPWd: 1.0 cm LA dimension: 4.5 cm RVDd: 4.3 cm FS: 15.3 % LAV(MOD-bp): 84.6 ml LVAd ap4: 45.1 cm2 SV(MOD-sp4): 63.6 ml LAV(MOD-bp) Indexed: 48.0 ml/m2 LVLd ap4: 9.3 cm LAV(MOD-sp2): 70.9 ml EDV(MOD-sp4): 173.5 ml LAV(MOD-sp4): 90.8 ml EDV(sp4-el): 185.1 ml LVAs ap4: 33.4 cm2 LVLs ap4: 8.2 cm ESV(MOD-sp4): 109.9 ml ESV(sp4-el): 115.8 ml EF(MOD-sp4): 36.6 % EF(sp4-el): 37.5 % SV(sp4-el): 69.4 ml LA A4 area: 27.4 cm2 RA A4 area: 26.7 cm2 TAPSE: 1.6 cm Time Measurements MV dec time: 0.23 sec Doppler Measurements & Calculations MV E max collins: 146.8 cm/sec Lat Peak E' Collins: 8.5 cm/sec Med Peak E' Collins: 6.0 cm/sec MV A max collins: 62.5 cm/sec E/E' lat: 17.2 E/E' med: 24.7 MV E/A: 2.3 MV V2 max: 184.3 cm/sec MV P1/2t max collins: 186.4 cm/sec Ao V2 max: 168.6 cm/sec MV max P.6 mmHg MV P1/2t: 80.9 msec Ao max P.4 mmHg MV V2 mean: 85.0 cm/sec Ao V2 mean: 116.1 cm/sec MV mean P.7 mmHg MV dec slope: 674.8 cm/sec2 Ao mean P.3 mmHg MV V2 VTI: 45.7 cm MVA(P1/2t): 2.7 cm2 Ao V2 VTI: 37.6 cm AV (velocity ratio): 0.88 AI max collins: 422.4 cm/sec LV V1 max: 156.9 cm/sec MR max collins: 486.7 cm/sec AI max P.4 mmHg LV V1 max P.9 mmHg MR max P.7 mmHg LV V1 mean P.0 mmHg MR mean collins: 363.1 cm/sec AI dec slope: 188.7 cm/sec2 LV V1 mean: 102.1 cm/sec MR mean P.7 mmHg AI P1/2t: 655.7 msec LV V1 VTI: 33.1 cm MR VTI: 178.2 cm PA V2 max: 104.9 cm/sec TR max collins: 398.2 cm/sec PA V2 mean: 67.9 cm/sec TR max P.4 mmHg ECHO/Echo Complete W/ Contrast Interpretation Summary Status post mitral valve repair with annuloplasty ring. Normal LV size. The left ventricular ejection fraction is 35 %. Stage 3 diastolic dysfunction. The left atrium is moderately enlarged. The right atrium is moderately enlarged. Mild (1+) eccentric aortic valve insufficiency. Moderate pulmonary hypertension. Pulmonary artery systolic pressure is 68 mmHg. Contrast injection was performed. Ordering Physician: Edilberto Coppola Referring Physician: Edilberto Coppola Performed By: Maximilian Rothman RCS
[2023-09-28 13:41] LABS: Absolute Lymphocyte Count 0.99 X10^3/uL (0.83-4.51); Absolute Neutrophil Count 3.6 X10^3/uL (2.0-7.7); Basophil# 0.04 X10^3/uL; Basophil% 0.8 % (0-1); Eosinophil# 0.04 X10^3/uL; Eosinophils% 0.8 % (0-5); Hematocrit 34.4 % (37-47); Hemoglobin 11.4 g/dL (12.0-15.0); Lymphocyte # 0.99 X10^3/ul (0.83-4.51); Lymphocyte % 19.1 % (19-41); Mean Corp Hgb Conc 33.1 g/dL (32-36); Mean Corpuscular Hgb 32.2 pg (27.0-32.0); Mean Corpuscular Volume 97.2 fL (81-99); Mean Platelet Vol. 9.7 fl (6.2-12.0); Monocyte# 0.55 X10^3/uL; Monocyte% 10.6 % (0-10); NRBC Flagged by Analyzer 0 % (0-5); Neutrophil # 3.55 X10^3/uL (2.7-7.7); Neutrophil % 68.3 % (47-70); Platelet Count 147 K/mm3 (150-450); RBC Distribution Width CV 14.9 % (11.6-14.6); RBC Distribution Width SD 53.1 fl (35.1-43.9); Red Blood Count 3.54 M/mm3 (4.2-5.4); White Blood Count 5.2 K/mm3 (4.4-11.0)
[2023-09-28 14:05] LABS: Anion Gap 4 (5-15); BUN 37 mg/dL (7-18); BUN/Creat Ratio 27.8 RATIO (10-20); Calcium,Total 9.1 mg/dL (8.5-10.1); Chloride 104 mmol/L (98-107); Creatinine, Serum 1.33 mg/dL (0.55-1.02); EST Glomerular Filtration Rate 42 mL/min (>60); Est Glom Filt Rate - Afr Amer 51 mL/min (>60); Glucose 89 mg/dL (74-106); Magnesium 2.1 mg/dL (1.6-2.6); Potassium 4.3 mmol/L (3.5-5.1); Sodium Level 139 mmol/L (136-145)
== END | disposition home or self-care (01) ==
PROVIDERS: PCP Nurse Practitioner Family; Referring Provider Nurse Practitioner Family; Visit Provider Nurse Practitioner Family
DX: I42.8 Other cardiomyopathies (principal); I42.2 Other hypertrophic cardiomyopathy; I10 Essential (primary) hypertension; E78.2 Mixed hyperlipidemia; Z98.890 Other specified postprocedural states
CPT/HCPCS: 36415; 80048; 83735; 85025; 93306; Q9957; A4216; C8929

== ENCOUNTER → 2024-01-28 | Outpatient (CLI) | payer SELFPAY, OTHER ==
--- NOTE | 2024-01-28 12:53 | ECHOLC_ITS ---
Reason For Study: NON ISCH CMP Procedure This was a limited 2D transthoracic echocardiogram. The study was technically difficult. Contrast injection was performed. Exam performed in department. Left Ventricle Normal LV size. The left ventricular ejection fraction is 45 %. Right Ventricle Normal RV size. Normal systolic function. Atria The left atrium is mildly enlarged. The right atrium is mildly enlarged. Mitral Valve There is moderate mitral annular calcification. Status post mitral valve repair with annuloplasty ring. Aortic Valve Trisinus/trileaflet aortic valve. Mild focal aortic valve thickening. Pulmonic Valve The pulmonic valve is not well visualized. Great Vessels Normal aortic root. The pulmonary artery is normal size. Normal inferior vena cava. Pericardium/Pleural No pericardial effusion. Medication 22 gauge I.V. with prn adaptor inserted into right arm. Diluted definity 1ml given slow IV push to enhance endocardial definition. MMode/2D Measurements & Calculations LVIDd: 5.7 cm IVSd: 1.1 cm Ao root diam: 3.4 cm LVIDs: 4.3 cm LVPWd: 1.1 cm FS: 24.8 % LAV(MOD-bp): 72.8 ml LVAd ap4: 38.8 cm2 SV(MOD-sp4): 48.5 ml LAV(MOD-bp) Indexed: 40.8 ml/m2 LVLd ap4: 8.2 cm LAV(MOD-sp2): 52.5 ml EDV(MOD-sp4): 150.0 ml LAV(MOD-sp4): 82.6 ml EDV(sp4-el): 156.5 ml LVAs ap4: 30.3 cm2 LVLs ap4: 7.3 cm ESV(MOD-sp4): 101.5 ml ESV(sp4-el): 106.2 ml EF(MOD-sp4): 32.4 % EF(sp4-el): 32.1 % SV(sp4-el): 50.2 ml LA A4 area: 26.0 cm2 LA dimension(2D): 5.2 cm RA A4 area: 25.7 cm2 ECHO/Echo Limited w/Contrast Interpretation Summary Status post mitral valve repair with annuloplasty ring. The left ventricular ejection fraction is 45 %. Normal LV size. The left atrium is mildly enlarged. The right atrium is mildly enlarged. Contrast injection was performed. Ordering Physician: Blanca Stevens Referring Physician: Blanca Stevens Performed By: Elsie Guzmán RCS
== END | disposition home or self-care (01) ==
PROVIDERS: PCP Nurse Practitioner Family; Referring Provider Nurse Practitioner Gerontology; Visit Provider Nurse Practitioner Gerontology
DX: I42.8 Other cardiomyopathies (principal)
CPT/HCPCS: 93308; Q9957; A4216; C8924

== ENCOUNTER → 2024-02-12 | Outpatient (CLI) | payer SELFPAY, OTHER ==
--- NOTE | 2024-02-12 13:35 | RAD_ITS ---
STUDY: X-RAY CHEST REASON FOR EXAM: Female, 68 years old. Patient on amiodarone. TECHNIQUE: Frontal and lateral views of the chest on 3 images. COMPARISON: June 19, 2018 FINDINGS: Stable mild hyperinflation. There is no demonstrated pleural abnormality. Cardiomegaly with new sternotomy wires, valve replacement changes and left atrial appendage closure device. Normal mediastinum and alda. Normal visualized pulmonary arteries. Normal visualized aortic arch and descending thoracic aorta. Diffuse moderate thoracic spondylosis. Normal visualized ribs, clavicles, and shoulders. No abnormality of the visualized soft tissue structures of the upper abdomen. RAD/Chest PA and Lateral IMPRESSION: New cardiomegaly, valve replacement and sternotomy wires with left atrial appendage closure device. Cardiomegaly with no acute finding. Electronically Signed: Nathaniel Young MD at 13:53 EDT ,
[2024-02-12 15:01] LABS: ALB/GLOB Ratio 0.8 RATIO (0.9-2.4); AST(SGOT) 32 U/L (15-37); Alanine Aminotransfer ALT/SGPT 50 U/L (13-56); Albumin, Serum 3.9 g/dL (3.2-5.0); Alkaline Phosphatase 113 U/L (45-117); Anion Gap 6 (5-15); BUN 37 mg/dL (7-18); Calcium,Total 9.4 mg/dL (8.5-10.1); Chloride 100 mmol/L (98-107); Creatinine, Serum 1.68 mg/dL (0.55-1.02); EST Glomerular Filtration Rate 32 mL/min (>60); Est Glom Filt Rate - Afr Amer 39 mL/min (>60); Globulin 4.7 g/dL (2.2-4.2); Glucose 117 mg/dL (74-106); Potassium 4.1 mmol/L (3.5-5.1); Protein, Total 8.6 g/dL (6.4-8.2); Sodium Level 138 mmol/L (136-145)
== END | disposition home or self-care (01) ==
PROVIDERS: PCP Nurse Practitioner Family; Referring Provider Nurse Practitioner Gerontology; Visit Provider Nurse Practitioner Gerontology
DX: Z79.899 Other long term (current) drug therapy (principal)
CPT/HCPCS: 36415; 71046; 80053; 84443